=== PATIENT | male | born 1985 | race Caucasian/White ===

== ENCOUNTER 2017-08-24 11:58 | Emergency (ER) | payer SELFPAY ==
[2017-08-25 11:53] LABS: NEGATIVE OBC STREP NEG; POSITIVE OBC STREP POS
== END 2017-08-24 14:55 | disposition home or self-care (01) ==
LOC: ER 11:58
DX: J02.9 Acute pharyngitis, unspecified (principal); F17.200 Nicotine dependence, unspecified, uncomplicated
CPT/HCPCS: 87070; 87880; 99283

== ENCOUNTER 2018-08-08 13:19 | Inpatient (IN) | payer BC, SELFPAY ==
[~2018-08-08] VITALS: Ht 182.9 cm; Wt 105.3 kg
--- NOTE | 2018-08-08 14:54 | PHYS DOC ---
Past Medical History Past Medical History: No Pertinent History Past Surgical History: No Surgical History Additional Information: 1 PK A DAY Alcohol Use: Occasionally Additional Information: 2-3XS A WEEK Drug Use: None Adult General Chief Complaint Chief Complaint: HYPERTENSION HPI HPI Patient is a 32 year old male who presents to ER after going to a clinical trial for smoking his blood pressure was checked and it was high so was sent to urgent care and then ER. Associated symptoms include he has had a headache off and on the last year. Has headache today. Has had tingling down his L arm x 3 weeks. He is also had blurry vision off and on for year. States he does not go to doctor but is willing to get a primary care doctor. He also rates his pain as 4/10 and the character as throbbing. Review of Systems Review of Systems Constitutional: Denies fever or chills [] Eyes: Reports change in visual acuity but denies redness, or eye pain [] HENT: Denies nasal congestion or sore throat [] Respiratory: Denies cough or shortness of breath [] Cardiovascular: Denies CP or Syncope GI: Denies abdominal pain, nausea, vomiting, bloody stools or diarrhea [] : Denies dysuria or hematuria [] Musculoskeletal: Denies back pain or joint pain but has a tingling down left arm. Integument: Denies rash or skin lesions [] Neurologic: Reports headache but denies focal weakness or sensory changes [] Endocrine: Denies polyuria or polydipsia [] Complete systems were reviewed and found to be within normal limits, except as documented in this note. Current Medications Current Medications Current Medications Medications (Trade) Dose Ordered Sig/Jose Start Time Stop Time Status Last Admin Dose Admin Aspirin (Children'S Aspirin) 324 mg 1X ONCE 08/08/18 15:00 08/08/18 15:01 DC 08/08/18 15:16 324 MG Enalaprilat (Vasotec Inj) 2.5 mg 1X ONCE 08/08/18 17:30 08/08/18 17:31 DC Hydralazine HCl (Apresoline Inj) 10 mg 1X ONCE 08/08/18 15:00 08/08/18 15:01 DC 08/08/18 15:16 10 MG Labetalol HCl (Normodyne Iv Push) 20 mg 1X ONCE 08/08/18 16:00 08/08/18 16:01 DC 08/08/18 16:17 20 MG Allergies Allergies Allergies Coded Allergies Type Severity Reaction Last Updated Verified No Known Drug Allergies 08/24/17 No Physical Exam Physical Exam Constitutional: Well developed, well nourished, no acute distress, non-toxic appearance. [] HENT: Normocephalic, atraumatic, bilateral external ears normal, oropharynx moist, no oral exudates, nose normal. [] Eyes: PERRLA, EOMI, conjunctiva normal, no discharge. [] Neck: Normal range of motion, no tenderness, supple, no stridor. [] Cardiovascular:Heart rate regular rhythm, no murmur [] Lungs & Thorax: Bilateral breath sounds clear to auscultation [] Abdomen: Soft, no tenderness, no masses, no pulsatile masses. [] Skin: Warm, dry, no erythema, no rash. [] Back: No tenderness, no CVA tenderness. [] Extremities: No tenderness, no cyanosis, no clubbing, ROM intact, no edema. [] Neurologic: Alert and oriented X 3, normal motor function, normal sensory function, no focal deficits noted. [] Psychologic: Affect normal, judgement normal, mood normal. [] Current Patient Data Vital Signs Vital Signs Date Time Temp Pulse Resp B/P (MAP) Pulse Ox O2 Delivery O2 Flow Rate FiO2 08/08/18 16:17 78 201/126 08/08/18 14:05 98.2 20 97 Room Air 98.2 Lab Values Laboratory Tests Test 08/08/18 14:30 08/08/18 17:24 White Blood Count 11.1 x10^3/uL (4.0-11.0) H Red Blood Count 5.08 x10^6/uL (4.30-5.70) Hemoglobin 16.2 g/dL (13.0-17.5) Hematocrit 47.1 % (39.0-53.0) Mean Corpuscular Volume 93 fL (79-100) Mean Corpuscular Hemoglobin 32 pg (25-35) Mean Corpuscular Hemoglobin Concent 34 g/dL (31-37) Red Cell Distribution Width 13.1 % (11.5-14.5) Platelet Count 205 x10^3/uL (140-400) Neutrophils (%) (Auto) 65 % (31-73) Lymphocytes (%) (Auto) 30 % (24-48) Monocytes (%) (Auto) 4 % (0-9) Eosinophils (%) (Auto) 1 % (0-3) Basophils (%) (Auto) 0 % (0-3) Neutrophils # (Auto) 7.2 x10^3uL (1.8-7.7) Lymphocytes # (Auto) 3.3 x10^3/uL (1.0-4.8) Monocytes # (Auto) 0.4 x10^3/uL (0.0-1.1) Eosinophils # (Auto) 0.2 x10^3/uL (0.0-0.7) Basophils # (Auto) 0.0 x10^3/uL (0.0-0.2) Sodium Level 140 mmol/L (136-145) Potassium Level 4.0 mmol/L (3.5-5.1) Chloride Level 103 mmol/L (98-107) Carbon Dioxide Level 27 mmol/L (21-32) Anion Gap 10 (6-14) Blood Urea Nitrogen 12 mg/dL (8-26) Creatinine 0.8 mg/dL (0.7-1.3) Estimated GFR (Cockcroft-Gault) 113.5 BUN/Creatinine Ratio 15 (6-20) Glucose Level 98 mg/dL (70-99) Calcium Level 9.1 mg/dL (8.5-10.1) Total Bilirubin 1.0 mg/dL (0.2-1.0) Aspartate Amino Transferase (AST) 37 U/L (15-37) Alanine Aminotransferase (ALT) 68 U/L (16-63) H Alkaline Phosphatase 53 U/L (46-116) Troponin I Quantitative 0.030 ng/mL (0.000-0.055) Total Protein 7.4 g/dL (6.4-8.2) Albumin 4.1 g/dL (3.4-5.0) Albumin/Globulin Ratio 1.2 (1.0-1.7) Creatine Kinase 206 U/L (39-308) Laboratory Tests 08/08/18 14:30 Laboratory Tests 08/08/18 14:30 EKG EKG EKG interpreted by Dr. Tucker, NO STEMI, Sinus Rhythm with rate of 77.[] Radiology/Procedures Radiology/Procedures []PATIENT: WHITE,JOHNNY EACCOUNT: [id number]#: [id number] : 1985 LOCATION: ER AGE: 32 SEX: M EXAM STATUS: REG ER ORD. PHYSICIAN: ELICEO ALVES APRN REASON: atypical chest pain, ACUTE HTN PROCEDURE: PORTABLE CHEST 1V Single view chest dated 08/08/2018: No comparison available. Clinical Indication: Chest pain.. Findings: Single upright portable exam of the chest was performed. Heart size and mediastinal contours are within normal limits given technique. The lungs are clear without evidence of focal consolidation. Vascular interstitium is within normal limits. Impression:: Negative portable chest. Electronically signed by: Eliceo Su MD (08/08/2018 3:21 PM) PATIENT: JOHNNY NOE E ACCOUNT: [id number] : 1985 LOCATION: ER AGE: 32 SEX: M EXAM STATUS: REG ER ORD. PHYSICIAN: ELICEO ALVES APRN REASON: headache; htn PROCEDURE: CT HEAD WO CONTRAST CT HEAD INDICATION: Headache, hypertension COMPARISON: None Available. Exposure: One or more of the following individualized dose reduction techniques were utilized for this examination: 1. Automated exposure control 2. Adjustment of the mA and/or kV according to patient size 3. Use of iterative reconstruction technique TECHNIQUE: 5 mm contiguous axial images were obtained from the skull base to the vertex in both bone and soft tissue algorithm. FINDINGS: No abnormal attenuation within the brain parenchyma. No evidence of acute intracranial hemorrhage. No extra-axial fluid collections. No mass effect or midline shift. Ventricular size is appropriate. Basal cisterns are patent. No fractures identified.Barnard-white differentiation is preserved.Globes and orbits are within normal limits. Mild mucosal thickening right maxillary sinus. There is mild opacification the right mastoid air cells. IMPRESSION: 1. No acute intracranial findings. 2. Mild opacification of the right mastoid air cells, nonspecific could be secondary to fluid within the mastoid air cells or chronic otitis media. Electronically signed by: Antonio Roca MD (08/08/2018 3:17 PM) [place] [id number] Course & Med Decision Making Course & Med Decision Making Pertinent Labs and Imaging studies reviewed. (See chart for details) Discussed with patient the importance of obtaining a primary care doctor and having a physical. Will give IV hydralazine to control pressure, labs, ekg, and chest x-ray. Will also get CT of head. Imaging and labs are unremarkable with the exception of an 11.1 WBC but states he had recent ear infection. Blood pressure is down to 170's systolic. Will give 10 of labetalol to lower further. He states headache, and tingling. Went back to check on patient and blood pressure is back up to low 200's systolic. States arm tingling is coming and going intermittently. Will call hospitalist to admit. Talked to Dr. Lucero will try Vasotec to see if brings pressure down. Vasotec improved blood pressure to 143/96. Will admit to CVC. Frank Disclaimer Frank Disclaimer This electronic medical record was generated, in whole or in part, using a voice recognition dictation system. Departure Departure Impression: Primary Impression: Hypertensive urgency Disposition: ADMITTED INPATIENT Condition: GOOD Referrals: NO PCP (PCP) Patient Instructions: Hypertension Additional Instructions: Please follow up with a primary care doctor this week for physical. Return to ER as needed. ELICEO ALVES APRN August 08, 2018 14:54
[2018-08-08 14:55] LABS: BASO % 0 % (0-3); EOS # 0.2 x10^3/uL (0.0-0.7); EOS % 1 % (0-3); HEMATOCRIT 47.1 % (39.0-53.0); HEMOGLOBIN 16.2 g/dL (13.0-17.5); LYMPH # 3.3 x10^3/uL (1.0-4.8); LYMPH % 30 % (24-48); MEAN CORPUSCULAR HEMOGLOBIN 32 pg (25-35); MEAN CORPUSCULAR HGB CONC 34 g/dL (31-37); MEAN CORPUSCULAR VOLUME 93 fL (79-100); MONO # 0.4 x10^3/uL (0.0-1.1); MONO % 4 % (0-9); NEUT # 7.2 x10^3uL (1.8-7.7); NEUT % 65 % (31-73); PLATELET COUNT 205 x10^3/uL (140-400); RED BLOOD COUNT 5.08 x10^6/uL (4.30-5.70); RED CELL DISTRIBUTION WIDTH 13.1 % (11.5-14.5); WHITE BLOOD COUNT 11.1 x10^3/uL (4.0-11.0)
[2018-08-08] MEDS ORDERED: ASPIRIN CHEWABLE 81 MG TABLET. PO ONE (15:00)
[2018-08-08] MEDS ORDERED: hydrALAZINE 20 MG/ML VIAL. IVP ONE (15:00)
[2018-08-08 15:06] LABS: CALCIUM 9.1 mg/dL (8.5-10.1); CREATININE 0.8 mg/dL (0.7-1.3); GFR 113.5
[2018-08-08 15:11] LABS: ALBUMIN 4.1 g/dL (3.4-5.0); ALBUMIN/GLOBULIN RATIO 1.2 (1.0-1.7); TOTAL PROTEIN 7.4 g/dL (6.4-8.2)
--- NOTE | 2018-08-08 15:20 | RAD ---
CT HEAD INDICATION: Headache, hypertension COMPARISON: None Available. Exposure: One or more of the following individualized dose reduction techniques were utilized for this examination: 1. Automated exposure control 2. Adjustment of the mA and/or kV according to patient size 3. Use of iterative reconstruction technique TECHNIQUE: 5 mm contiguous axial images were obtained from the skull base to the vertex in both bone and soft tissue algorithm. FINDINGS: No abnormal attenuation within the brain parenchyma. No evidence of acute intracranial hemorrhage. No extra-axial fluid collections. No mass effect or midline shift. Ventricular size is appropriate. Basal cisterns are patent. No fractures identified.Barnard-white differentiation is preserved.Globes and orbits are within normal limits. Mild mucosal thickening right maxillary sinus. There is mild opacification the right mastoid air cells. IMPRESSION: 1. No acute intracranial findings. 2. Mild opacification of the right mastoid air cells, nonspecific could be secondary to fluid within the mastoid air cells or chronic otitis media. Electronically signed by: Antonio Roca MD (08/08/2018 3:17 PM) [place] [id number]
--- NOTE | 2018-08-08 15:24 | RAD ---
Single view chest dated 08/08/2018: No comparison available. Clinical Indication: Chest pain.. Findings: Single upright portable exam of the chest was performed. Heart size and mediastinal contours are within normal limits given technique. The lungs are clear without evidence of focal consolidation. Vascular interstitium is within normal limits. Impression:: Negative portable chest. Electronically signed by: Eliceo Su MD (08/08/2018 3:21 PM) [id number]
--- NOTE | 2018-08-08 15:29 | EKG ---
[facility] [address] [place] [address] Test Date: 2018-08-08 Test Time: 14:31:21 Pat Name: JOHNNY NOE Department: Room: Gender: M Tobacco Baler: [id number] : 1985 Requested By: DICK ALVES Order Number: [id number] Reading MD: Jamaal Stockton Measurements Intervals [place] Rate: 77 P: -20 OR: 158 QRS: 23 QRSD: 86 T: 27 QT: 374 QTc: 425 Interpretive Statements SINUS RHYTHM Electronically Signed On 09-02-2018 11:41:01 CDT by Jamaal Stockton
[2018-08-08] MEDS ORDERED: LISI10TA2 PO ×2 (15:57→15:58)
[2018-08-08] MEDS ORDERED: LABETALOL 20 MG/4 ML DISP.SYRIN. IVP ONE (16:00)
[2018-08-08] MEDS ORDERED: ENALAPRILAT 2.5 MG/2 ML VIAL. IVP ONE (17:30)
[2018-08-08] MEDS ORDERED: ONDANSETRON PF 4 MG/2 ML VIAL. IV PRN (18:00)
--- NOTE | 2018-08-08 19:20 | PDOC1 ---
History and Physical Date of Admission Date of Admission DATE: 08/08/18 TIME: 19:19 Identification/Chief Complaint Chief Complaint Headache, elevated BP Source Source: Patient History of Present Illness History of Present Illness Mr Garcia is a 32 year old male w/ PMHx 1.5ppd smoker, chronic right otitis media, elevated blood pressure who presents to ER after going to a clinical trial for nicotine vapor smoking his blood pressure was checked and it was high so was sent to urgent care and then ER. Associated symptoms include he has had a headache off and on the last year. Has headache today. Has had tingling down his L arm x 3 weeks. He is also had blurry vision off and on for year. States he does not go to doctor. His headache has been throbbing, worse on the right side. CT head shows some mastoid sinus opacification on right, otherwise negative. Labs WNL. SBP was 211/129, then 215/115 after labetalol dosing. Given vasotec with a little more improvement. Admitted for further care. Past Medical History Cardiovascular: No pertinent hx Pulmonary: No pertinent hx GI: No pertinent hx Heme/Onc: No pertinent hx Hepatobiliary: No pertinent hx Psych: No pertinent hx Rheumatologic: No pertinent hx Infectious disease: No pertinent hx ENT: No pertinent hx Renal/: No pertinent hx Endocrine: No pertinent hx Dermatology: No pertinent hx Past Surgical History Past Surgical History: No pertinent history Family History Family History: Family History Unknown Social History Smoke: 2 packs per day ALCOHOL: rare Drugs: None Current Problem List Problem List Problems Medical Problems: (1) Hypertension Status: Acute (2) Hypertensive urgency Status: Acute (3) Uncontrolled hypertension Status: Acute Current Medications Current Medications Current Medications Hydralazine HCl (Apresoline Inj) 10 mg 1X ONCE IVP Last administered on 08/08/18at 15:16; Start 08/08/18 at 15:00; Stop 08/08/18 at 15:01; Status DC Aspirin (Children'S Aspirin) 324 mg 1X ONCE PO Last administered on 08/08/18at 15:16; Start 08/08/18 at 15:00; Stop 08/08/18 at 15:01; Status DC Labetalol HCl (Normodyne Iv Push) 20 mg 1X ONCE IVP Last administered on 08/08/18at 16:17; Start 08/08/18 at 16:00; Stop 08/08/18 at 16:01; Status DC Enalaprilat (Vasotec Inj) 2.5 mg 1X ONCE IVP Last administered on 08/08/18at 17:45; Start 08/08/18 at 17:30; Stop 08/08/18 at 17:31; Status DC Ondansetron HCl (Zofran) 4 mg PRN Q8HRS PRN IV NAUSEA/VOMITING; Start 08/08/18 at 18:00; Stop 08/09/18 at 17:59 Active Scripts Active Allergies Allergies: Coded Allergies: No Known Drug Allergies (Unverified , 08/24/17) ROS General: YES: Fatigue, Malaise; No: Chills, Night Sweats, Appetite, Other PSYCHOLOGICAL ROS: No: Anxiety, Behavioral Disorder, Concentration difficultie, Decreased libido, Depression, Disorientation, Hallucinations, Hostility, Irritablity, Memory difficulties, Mood Swings, Obsessive thoughts, Physical abuse, Sexual abuse, Sleep disturbances, Suicidal ideation, Other Eyes: Yes Blurry vision; No Decreased vision, No Double vision, No Dry eyes, No Excessive tearing, No Eye Pain, No Itchy Eyes, No Loss of vision, No Photophobia, No Scotomata, No Uses contacts, No Uses glasses, No Other HEENT: YES: Heacaches, Sinus pain; No: Visual Changes, Hearing change, Nasal congestion, Nasal discharge, Oral lesions, Sore Throat, Epistaxis, Sneezing, Snoring, Tinnitus, Vertigo, Vocal changes, Other ALLERGY AND IMMUNOLOGY: No: Hives, Insect Bite Sensitivity, Itchy/Watery Eyes, Nasal Congestion, Post Nasal Drip, Seasonal Allergies, Other Hematological and Lymphatic: No: Bleeding Problems, Blood Clots, Blood Transfusions, Brusing, Night Sweats, Pallor, Swollen Lymph Nodes, Other ENDOCRINE: No: Breast Changes, Galactorrhea, Hair Pattern Changes, Hot Flashes, Malaise/lethargy, Mood Swings, Palpitations, Polydipsia/polyuria, Skin Changes, Temperature Intolerance, Unexpected Weight Changes, Other Breast: No New/Changing Breast Lumps, No Nipple changes, No Nipple discharge, No Other Respiratory: No: Cough, Hemoptysis, Orthopnea, Pleuritic Pain, Shortness of breath, SOB with excertion, Sputum Changes, Stridor, Tachypnea, Wheezing, Other Cardiovascular: No Chest Pain, No Palpitations, No Orthopnea, No Paroxysmal Noc. Dyspnea, No Edema, No Lt Headedness, No Other Gastrointestinal: No Nausea, No Vomiting, No Abdominal Pain, No Diarrhea, No Constipation, No Melena, No Hematochezia, No Other Genitourinary: No Dysuria, No Frequency, No Incontinence, No Hematuria, No Retention, No Discharge, No Urgency, No Pain, No Flank Pain, No Other, No , No , No , No , No , No , No Musculoskeletal: No Gait Disturbance, No Joint Pain, No Joint Stiffness, No Joint Swelling, No Muscle Pain, No Muscular Weakness, No Pain In:, No Swelling In:, No Other Neurological: No Behavorial Changes, No Bowel/Bladder ControlChng, No Confusion, No Dizziness, No Gait Disturbance, No Headaches, No Impaired Coord/balance, No Memory Loss, No Numbness/Tingling, No Seizures, No Speech Problems, No Tremors, No Visual Changes, No Weakness, No Other Skin: No Dry Skin, No Eczema, No Hair Changes, No Lumps, No Mole Changes, No Mottling, No Nail Changes, No Pruritus, No Rash, No Skin Lesion Changes, No Other, No Acne Physical Exam General: Alert, Oriented X3, Cooperative, No acute distress HEENT: Atraumatic, PERRLA, EOMI, Mucous membr. moist/pink Lungs: Clear to auscultation, Normal air movement Heart: S1S2, RRR, no gallops, no murmurs Abdomen: Normal bowel sounds, Soft, No tenderness, No hepatosplenomegaly, No masses Rectal Exam: not examined Extremities: No clubbing, No cyanosis, No edema, Normal pulses, No tenderness/swelling Skin: No rashes, No breakdown, No significant lesion Neuro: Normal gait, Normal speech, Strength at 5/5 X4 ext, Normal tone, Sensation intact, Cranial nerves 3-12 NL, Reflexes 2+ Psych/Mental Status: Mental status NL, Mood NL Vitals Vitals Vital Signs Date Time Temp Pulse Resp B/P (MAP) Pulse Ox O2 Delivery O2 Flow Rate FiO2 08/08/18 18:42 90 25 96 08/08/18 17:45 252/115 08/08/18 14:05 98.2 Room Air 98.2 Labs Labs Laboratory Tests Test 08/08/18 14:30 08/08/18 17:24 White Blood Count 11.1 x10^3/uL (4.0-11.0) Red Blood Count 5.08 x10^6/uL (4.30-5.70) Hemoglobin 16.2 g/dL (13.0-17.5) Hematocrit 47.1 % (39.0-53.0) Mean Corpuscular Volume 93 fL (79-100) Mean Corpuscular Hemoglobin 32 pg (25-35) Mean Corpuscular Hemoglobin Concent 34 g/dL (31-37) Red Cell Distribution Width 13.1 % (11.5-14.5) Platelet Count 205 x10^3/uL (140-400) Neutrophils (%) (Auto) 65 % (31-73) Lymphocytes (%) (Auto) 30 % (24-48) Monocytes (%) (Auto) 4 % (0-9) Eosinophils (%) (Auto) 1 % (0-3) Basophils (%) (Auto) 0 % (0-3) Neutrophils # (Auto) 7.2 x10^3uL (1.8-7.7) Lymphocytes # (Auto) 3.3 x10^3/uL (1.0-4.8) Monocytes # (Auto) 0.4 x10^3/uL (0.0-1.1) Eosinophils # (Auto) 0.2 x10^3/uL (0.0-0.7) Basophils # (Auto) 0.0 x10^3/uL (0.0-0.2) Sodium Level 140 mmol/L (136-145) Potassium Level 4.0 mmol/L (3.5-5.1) Chloride Level 103 mmol/L (98-107) Carbon Dioxide Level 27 mmol/L (21-32) Anion Gap 10 (6-14) Blood Urea Nitrogen 12 mg/dL (8-26) Creatinine 0.8 mg/dL (0.7-1.3) Estimated GFR (Cockcroft-Gault) 113.5 BUN/Creatinine Ratio 15 (6-20) Glucose Level 98 mg/dL (70-99) Calcium Level 9.1 mg/dL (8.5-10.1) Total Bilirubin 1.0 mg/dL (0.2-1.0) Aspartate Amino Transf (AST/SGOT) 37 U/L (15-37) Alanine Aminotransferase (ALT/SGPT) 68 U/L (16-63) Alkaline Phosphatase 53 U/L (46-116) Troponin I Quantitative 0.030 ng/mL (0.000-0.055) Total Protein 7.4 g/dL (6.4-8.2) Albumin 4.1 g/dL (3.4-5.0) Albumin/Globulin Ratio 1.2 (1.0-1.7) Creatine Kinase 206 U/L (39-308) Laboratory Tests Test 08/08/18 14:30 08/08/18 17:24 White Blood Count 11.1 x10^3/uL (4.0-11.0) Red Blood Count 5.08 x10^6/uL (4.30-5.70) Hemoglobin 16.2 g/dL (13.0-17.5) Hematocrit 47.1 % (39.0-53.0) Mean Corpuscular Volume 93 fL (79-100) Mean Corpuscular Hemoglobin 32 pg (25-35) Mean Corpuscular Hemoglobin Concent 34 g/dL (31-37) Red Cell Distribution Width 13.1 % (11.5-14.5) Platelet Count 205 x10^3/uL (140-400) Neutrophils (%) (Auto) 65 % (31-73) Lymphocytes (%) (Auto) 30 % (24-48) Monocytes (%) (Auto) 4 % (0-9) Eosinophils (%) (Auto) 1 % (0-3) Basophils (%) (Auto) 0 % (0-3) Neutrophils # (Auto) 7.2 x10^3uL (1.8-7.7) Lymphocytes # (Auto) 3.3 x10^3/uL (1.0-4.8) Monocytes # (Auto) 0.4 x10^3/uL (0.0-1.1) Eosinophils # (Auto) 0.2 x10^3/uL (0.0-0.7) Basophils # (Auto) 0.0 x10^3/uL (0.0-0.2) Sodium Level 140 mmol/L (136-145) Potassium Level 4.0 mmol/L (3.5-5.1) Chloride Level 103 mmol/L (98-107) Carbon Dioxide Level 27 mmol/L (21-32) Anion Gap 10 (6-14) Blood Urea Nitrogen 12 mg/dL (8-26) Creatinine 0.8 mg/dL (0.7-1.3) Estimated GFR (Cockcroft-Gault) 113.5 BUN/Creatinine Ratio 15 (6-20) Glucose Level 98 mg/dL (70-99) Calcium Level 9.1 mg/dL (8.5-10.1) Total Bilirubin 1.0 mg/dL (0.2-1.0) Aspartate Amino Transf (AST/SGOT) 37 U/L (15-37) Alanine Aminotransferase (ALT/SGPT) 68 U/L (16-63) Alkaline Phosphatase 53 U/L (46-116) Troponin I Quantitative 0.030 ng/mL (0.000-0.055) Total Protein 7.4 g/dL (6.4-8.2) Albumin 4.1 g/dL (3.4-5.0) Albumin/Globulin Ratio 1.2 (1.0-1.7) Creatine Kinase 206 U/L (39-308) Images Images CT head - 1. No acute intracranial findings. 2. Mild opacification of the right mastoid air cells, nonspecific could be secondary to fluid within the mastoid air cells or chronic otitis media. CXR - Negative portable chest. VTE Prophylaxis Ordered VTE Prophylaxis Devices: Yes VTE Pharmacological Prophylaxi: No Assessment/Plan Assessment/Plan A/P: Accelerated HTN - dangerously high DBP, admitted for better control of this hypertensive emergency. Will start low dose amlodipine and chlorthalidone, IV vasotec to get his DBP < 110. He may need 2/2 HTN w/u, will check renal dopplers, renin/safia as he notes having elevated BP as of 3 years ago. Smoking cessation is absolutely necessary for him Obesity - has been losing weight intentionally outpatient over the past 2 years. Smoker - 1.5ppd, offered nicotine patch. 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 and somewhat chronic otitis in his right ear, currently not symptomatic Headache - likely 2/2 his elevated BP, tylenol prn for this, treat BP FEN - General diet PPX - ambulatory FULL CODE Inpatient for HTN emergency ZHEN MEYER MD August 08, 2018 19:20
[2018-08-08 19:43] VITALS: BP 152/100
[2018-08-08] MEDS ORDERED: amLODIPine BESYLATE 5 MG TABLET PO ONE (20:30)
[2018-08-08] MEDS ORDERED: ENALAPRILAT 2.5 MG/2 ML VIAL. IVP PRN (22:00)
[2018-08-08] MEDS ORDERED: LABETALOL 20 MG/4 ML DISP.SYRIN. IVP PRN (22:00)
[2018-08-08 22:16] VITALS: BP 130/89
[2018-08-09 02:14] VITALS: BP 113/81
[2018-08-09 07:00] VITALS: BP 159/93
--- NOTE | 2018-08-09 08:03 | PDOC ---
PROGRESS NOTES Chief Complaint Chief Complaint A/P: Accelerated HTN - dangerously high DBP, admitted for better control of this hypertensive emergency. Will start low dose amlodipine and chlorthalidone, IV vasotec to get his DBP < 110. He may need 2/2 HTN w/u, will check renal dopplers, renin/safia as he notes having elevated BP as of 3 years ago. Smoking cessation is absolutely necessary for him Obesity - has been losing weight intentionally outpatient over the past 2 years. Smoker - 1.5ppd, offered nicotine patch. 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 Associated symptoms include he has had a headache off and on the last year. Has headache today. Has had tingling down his L arm x 3 weeks. He is also had blurry vision off and on for year. States he does not go to doctor. His headache has been throbbing, worse on the right side. CT head shows some mastoid sinus opacification on right, otherwise negative. Labs WNL. SBP was 211/129, then 215/115 after labetalol dosing. Given vasotec with a little more improvement. Admitted for further care. BP normalized with addition of oral amlodipine and chlorthalidone, underwent renal artery duplex negative for stenosis. Renin/aldosterone pending. Echo pending. He feels much better, ready to go home. Echo - The left ventricle is normal size. The left ventricular systolic function is normal and the ejection fraction is within normal range. The Ejection Fraction is 55-60%. There is borderline concentric left ventricular hypertrophy. There is no significant aortic valvular stenosis. Doppler and Color Flow revealed no significant aortic regurgitation. Doppler and Color-flow revealed trace mitral regurgitation. Doppler and Color Flow revealed no tricuspid valve regurgitation noted. Vitals Vitals Vital Signs Date Time Temp Pulse Resp B/P (MAP) Pulse Ox O2 Delivery O2 Flow Rate FiO2 08/09/18 07:00 97.8 92 20 159/93 (115) 98 Room Air 97.8 Physical Exam General: Alert, Oriented X3, Cooperative, No acute distress Abdomen: Normal bowel sounds, Soft, No tenderness, No hepatosplenomegaly, No masses Extremities: No clubbing, No cyanosis, No edema, Normal pulses, No tenderness/swelling Skin: No rashes, No breakdown, No significant lesion Labs LABS Laboratory Tests Test 08/08/18 14:30 08/08/18 17:24 White Blood Count 11.1 x10^3/uL (4.0-11.0) Red Blood Count 5.08 x10^6/uL (4.30-5.70) Hemoglobin 16.2 g/dL (13.0-17.5) Hematocrit 47.1 % (39.0-53.0) Mean Corpuscular Volume 93 fL (79-100) Mean Corpuscular Hemoglobin 32 pg (25-35) Mean Corpuscular Hemoglobin Concent 34 g/dL (31-37) Red Cell Distribution Width 13.1 % (11.5-14.5) Platelet Count 205 x10^3/uL (140-400) Neutrophils (%) (Auto) 65 % (31-73) Lymphocytes (%) (Auto) 30 % (24-48) Monocytes (%) (Auto) 4 % (0-9) Eosinophils (%) (Auto) 1 % (0-3) Basophils (%) (Auto) 0 % (0-3) Neutrophils # (Auto) 7.2 x10^3uL (1.8-7.7) Lymphocytes # (Auto) 3.3 x10^3/uL (1.0-4.8) Monocytes # (Auto) 0.4 x10^3/uL (0.0-1.1) Eosinophils # (Auto) 0.2 x10^3/uL (0.0-0.7) Basophils # (Auto) 0.0 x10^3/uL (0.0-0.2) Sodium Level 140 mmol/L (136-145) Potassium Level 4.0 mmol/L (3.5-5.1) Chloride Level 103 mmol/L (98-107) Carbon Dioxide Level 27 mmol/L (21-32) Anion Gap 10 (6-14) Blood Urea Nitrogen 12 mg/dL (8-26) Creatinine 0.8 mg/dL (0.7-1.3) Estimated GFR (Cockcroft-Gault) 113.5 BUN/Creatinine Ratio 15 (6-20) Glucose Level 98 mg/dL (70-99) Calcium Level 9.1 mg/dL (8.5-10.1) Total Bilirubin 1.0 mg/dL (0.2-1.0) Aspartate Amino Transf (AST/SGOT) 37 U/L (15-37) Alanine Aminotransferase (ALT/SGPT) 68 U/L (16-63) Alkaline Phosphatase 53 U/L (46-116) Troponin I Quantitative 0.030 ng/mL (0.000-0.055) Total Protein 7.4 g/dL (6.4-8.2) Albumin 4.1 g/dL (3.4-5.0) Albumin/Globulin Ratio 1.2 (1.0-1.7) Creatine Kinase 206 U/L (39-308) Assessment and Plan Assessmemt and Plan Problems Medical Problems: (1) Hypertension Status: Acute (2) Hypertensive urgency Status: Acute (3) Uncontrolled hypertension Status: Acute Comment Review of Relevant I have reviewed the following items trent (where applicable) has been applied. Labs Laboratory Tests Test 08/08/18 14:30 08/08/18 17:24 White Blood Count 11.1 x10^3/uL (4.0-11.0) Red Blood Count 5.08 x10^6/uL (4.30-5.70) Hemoglobin 16.2 g/dL (13.0-17.5) Hematocrit 47.1 % (39.0-53.0) Mean Corpuscular Volume 93 fL (79-100) Mean Corpuscular Hemoglobin 32 pg (25-35) Mean Corpuscular Hemoglobin Concent 34 g/dL (31-37) Red Cell Distribution Width 13.1 % (11.5-14.5) Platelet Count 205 x10^3/uL (140-400) Neutrophils (%) (Auto) 65 % (31-73) Lymphocytes (%) (Auto) 30 % (24-48) Monocytes (%) (Auto) 4 % (0-9) Eosinophils (%) (Auto) 1 % (0-3) Basophils (%) (Auto) 0 % (0-3) Neutrophils # (Auto) 7.2 x10^3uL (1.8-7.7) Lymphocytes # (Auto) 3.3 x10^3/uL (1.0-4.8) Monocytes # (Auto) 0.4 x10^3/uL (0.0-1.1) Eosinophils # (Auto) 0.2 x10^3/uL (0.0-0.7) Basophils # (Auto) 0.0 x10^3/uL (0.0-0.2) Sodium Level 140 mmol/L (136-145) Potassium Level 4.0 mmol/L (3.5-5.1) Chloride Level 103 mmol/L (98-107) Carbon Dioxide Level 27 mmol/L (21-32) Anion Gap 10 (6-14) Blood Urea Nitrogen 12 mg/dL (8-26) Creatinine 0.8 mg/dL (0.7-1.3) Estimated GFR (Cockcroft-Gault) 113.5 BUN/Creatinine Ratio 15 (6-20) Glucose Level 98 mg/dL (70-99) Calcium Level 9.1 mg/dL (8.5-10.1) Total Bilirubin 1.0 mg/dL (0.2-1.0) Aspartate Amino Transf (AST/SGOT) 37 U/L (15-37) Alanine Aminotransferase (ALT/SGPT) 68 U/L (16-63) Alkaline Phosphatase 53 U/L (46-116) Troponin I Quantitative 0.030 ng/mL (0.000-0.055) Total Protein 7.4 g/dL (6.4-8.2) Albumin 4.1 g/dL (3.4-5.0) Albumin/Globulin Ratio 1.2 (1.0-1.7) Creatine Kinase 206 U/L (39-308) Laboratory Tests Test 08/08/18 14:30 08/08/18 17:24 White Blood Count 11.1 x10^3/uL (4.0-11.0) Red Blood Count 5.08 x10^6/uL (4.30-5.70) Hemoglobin 16.2 g/dL (13.0-17.5) Hematocrit 47.1 % (39.0-53.0) Mean Corpuscular Volume 93 fL (79-100) Mean Corpuscular Hemoglobin 32 pg (25-35) Mean Corpuscular Hemoglobin Concent 34 g/dL (31-37) Red Cell Distribution Width 13.1 % (11.5-14.5) Platelet Count 205 x10^3/uL (140-400) Neutrophils (%) (Auto) 65 % (31-73) Lymphocytes (%) (Auto) 30 % (24-48) Monocytes (%) (Auto) 4 % (0-9) Eosinophils (%) (Auto) 1 % (0-3) Basophils (%) (Auto) 0 % (0-3) Neutrophils # (Auto) 7.2 x10^3uL (1.8-7.7) Lymphocytes # (Auto) 3.3 x10^3/uL (1.0-4.8) Monocytes # (Auto) 0.4 x10^3/uL (0.0-1.1) Eosinophils # (Auto) 0.2 x10^3/uL (0.0-0.7) Basophils # (Auto) 0.0 x10^3/uL (0.0-0.2) Sodium Level 140 mmol/L (136-145) Potassium Level 4.0 mmol/L (3.5-5.1) Chloride Level 103 mmol/L (98-107) Carbon Dioxide Level 27 mmol/L (21-32) Anion Gap 10 (6-14) Blood Urea Nitrogen 12 mg/dL (8-26) Creatinine 0.8 mg/dL (0.7-1.3) Estimated GFR (Cockcroft-Gault) 113.5 BUN/Creatinine Ratio 15 (6-20) Glucose Level 98 mg/dL (70-99) Calcium Level 9.1 mg/dL (8.5-10.1) Total Bilirubin 1.0 mg/dL (0.2-1.0) Aspartate Amino Transf (AST/SGOT) 37 U/L (15-37) Alanine Aminotransferase (ALT/SGPT) 68 U/L (16-63) Alkaline Phosphatase 53 U/L (46-116) Troponin I Quantitative 0.030 ng/mL (0.000-0.055) Total Protein 7.4 g/dL (6.4-8.2) Albumin 4.1 g/dL (3.4-5.0) Albumin/Globulin Ratio 1.2 (1.0-1.7) Creatine Kinase 206 U/L (39-308) Medications Current Medications Hydralazine HCl (Apresoline Inj) 10 mg 1X ONCE IVP Last administered on 08/08/18at 15:16; Start 08/08/18 at 15:00; Stop 08/08/18 at 15:01; Status DC Aspirin (Children'S Aspirin) 324 mg 1X ONCE PO Last administered on 08/08/18at 15:16; Start 08/08/18 at 15:00; Stop 08/08/18 at 15:01; Status DC Labetalol HCl (Normodyne Iv Push) 20 mg 1X ONCE IVP Last administered on 08/08/18at 16:17; Start 08/08/18 at 16:00; Stop 08/08/18 at 16:01; Status DC Enalaprilat (Vasotec Inj) 2.5 mg 1X ONCE IVP Last administered on 08/08/18at 17:45; Start 08/08/18 at 17:30; Stop 08/08/18 at 17:31; Status DC Ondansetron HCl (Zofran) 4 mg PRN Q8HRS PRN IV NAUSEA/VOMITING; Start 08/08/18 at 18:00; Stop 08/09/18 at 17:59 Amlodipine Besylate (Norvasc) 5 mg 1X ONCE PO Last administered on 08/08/18at 20:53; Start 08/08/18 at 20:30; Stop 08/08/18 at 20:31; Status DC Enalaprilat (Vasotec Inj) 2.5 mg PRN Q6HRS PRN IVP HYPERTENSION, SEE COMMENTS; Start 08/08/18 at 22:00 Labetalol HCl (Normodyne Iv Push) 10 mg PRN Q2HR PRN IVP HYPERTENSION, SEE COMMENTS; Start 08/08/18 at 22:00 Chlorthalidone (Thalitone) 25 mg DAILY PO ; Start 08/09/18 at 09:00 Amlodipine Besylate (Norvasc) 5 mg DAILY PO ; Start 08/09/18 at 09:00 Active Scripts Active Vitals/I & O Vital Sign - Last 24 Hours 08/08/18 08/08/18 08/08/18 08/08/18 14:05 14:25 14:40 14:55 Temp 98.2 98.2 Pulse 84 84 80 68 Resp B/P (MAP) 151/118 (129) Pulse Ox 97 98 97 O2 Delivery Room Air 08/08/18 08/08/18 08/08/18 08/08/18 15:12 15:16 15:30 15:42 Pulse 75 85 80 80 Resp B/P (MAP) 196/125 Pulse Ox 99 98 08/08/18 08/08/18 08/08/18 08/08/18 16:06 16:17 16:20 16:27 Pulse 72 78 78 72 Resp B/P (MAP) 201/126 Pulse Ox 99 98 98 08/08/18 08/08/18 08/08/18 08/08/18 16:57 17:12 17:27 17:40 Pulse 80 78 82 84 Resp 20 08/08/18 08/08/18 08/08/18 08/08/18 17:42 17:45 17:53 18:02 Pulse 80 80 86 84 Resp B/P (MAP) 252/115 Pulse Ox 98 97 08/08/18 08/08/18 08/08/18 08/08/18 18:12 18:32 18:42 19:43 Temp 98.1 98.1 Pulse 82 88 90 107 Resp 18 B/P (MAP) 152/100 (117) Pulse Ox 97 97 96 97 O2 Delivery Room Air 08/08/18 08/08/18 08/08/18 08/09/18 20:25 20:53 22:16 02:14 Temp 98.2 98.7 98.2 98.7 Pulse 107 114 77 Resp 20 20 B/P (MAP) 152/100 130/89 (103) 113/81 (92) Pulse Ox 98 96 O2 Delivery Room Air Room Air Room Air 08/09/18 07:00 Temp 97.8 97.8 Pulse 92 Resp 20 B/P (MAP) 159/93 (115) Pulse Ox 98 O2 Delivery Room Air Intake and Output 08/08/18 08/08/18 08/09/18 14:59 22:59 06:59 Intake Total 200 ml 0 ml Balance 200 ml 0 ml ZHEN MEYER MD August 09, 2018 08:03
--- NOTE | 2018-08-09 08:18 | RAD ---
US RENAL DUPLEX History: New onset hypertension Comparison: None. Findings: Multiple grayscale, color, duplex spectral analysis waveform images of the kidneys and renal vasculature are submitted. There is no significant velocity elevation of the renal arteries, maximal right renal artery velocity 126 cm/s distally and left 127 cm/s distally. Maximal right renal resistive index 0.6, left 0.6. Abdominal aortic peak systolic velocity 114 cm/s. Maximal right RA/AO ratio 1.1, left 1.1. Right kidney measured up to 14.3 cm in length, left 14.7 cm. There is no hydronephrosis of either kidney. Renal veins are patent. Impression: 1. There is no sonographic evidence of renal artery stenosis. Electronically signed by: Christian Kirby MD (08/09/2018 8:15 AM) [id number]
[2018-08-09] MEDS ORDERED: CHLORTHALIDONE 25 MG TABLET. PO SCH (09:00)
[2018-08-09] MEDS ORDERED: amLODIPine BESYLATE 5 MG TABLET PO SCH (09:00)
[2018-08-09] MEDS ORDERED: AMLO10TA8 PO (09:55)
[2018-08-09] MEDS ORDERED: Nicotine 21MG TD (09:55)
[2018-08-09] MEDS ORDERED: CHLO25TA10 PO (09:55)
[2018-08-09] MEDS ORDERED: NICOTINE 21MG PATCH. TD SCH (10:00)
[2018-08-09 11:00] VITALS: BP 157/91
--- NOTE | 2018-08-09 11:04 | PDOC3 ---
Discharge Summary Visit Information Date of Admission: August 08, 2018 Date of Discharge: August 09, 2018 Admitting Diagnosis: Hypertensive emergency, transaminitis, Headache Final Diagnosis Problems Medical Problems: (1) Hypertension Status: Acute (2) Hypertensive urgency Status: Acute (3) Uncontrolled hypertension Status: Acute Brief Hospital Course Allergies Allergies Coded Allergies Type Severity Reaction Last Updated Verified No Known Drug Allergies 08/24/17 No Vital Signs Vital Signs Date Time Temp Pulse Resp B/P (MAP) Pulse Ox O2 Delivery O2 Flow Rate FiO2 08/09/18 08:58 80 159/93 08/09/18 07:00 97.8 20 98 Room Air 97.8 Lab Results Laboratory Tests Test 08/08/18 14:30 08/08/18 17:24 White Blood Count 11.1 x10^3/uL (4.0-11.0) Red Blood Count 5.08 x10^6/uL (4.30-5.70) Hemoglobin 16.2 g/dL (13.0-17.5) Hematocrit 47.1 % (39.0-53.0) Mean Corpuscular Volume 93 fL (79-100) Mean Corpuscular Hemoglobin 32 pg (25-35) Mean Corpuscular Hemoglobin Concent 34 g/dL (31-37) Red Cell Distribution Width 13.1 % (11.5-14.5) Platelet Count 205 x10^3/uL (140-400) Neutrophils (%) (Auto) 65 % (31-73) Lymphocytes (%) (Auto) 30 % (24-48) Monocytes (%) (Auto) 4 % (0-9) Eosinophils (%) (Auto) 1 % (0-3) Basophils (%) (Auto) 0 % (0-3) Neutrophils # (Auto) 7.2 x10^3uL (1.8-7.7) Lymphocytes # (Auto) 3.3 x10^3/uL (1.0-4.8) Monocytes # (Auto) 0.4 x10^3/uL (0.0-1.1) Eosinophils # (Auto) 0.2 x10^3/uL (0.0-0.7) Basophils # (Auto) 0.0 x10^3/uL (0.0-0.2) Sodium Level 140 mmol/L (136-145) Potassium Level 4.0 mmol/L (3.5-5.1) Chloride Level 103 mmol/L (98-107) Carbon Dioxide Level 27 mmol/L (21-32) Anion Gap 10 (6-14) Blood Urea Nitrogen 12 mg/dL (8-26) Creatinine 0.8 mg/dL (0.7-1.3) Estimated GFR (Cockcroft-Gault) 113.5 BUN/Creatinine Ratio 15 (6-20) Glucose Level 98 mg/dL (70-99) Calcium Level 9.1 mg/dL (8.5-10.1) Total Bilirubin 1.0 mg/dL (0.2-1.0) Aspartate Amino Transf (AST/SGOT) 37 U/L (15-37) Alanine Aminotransferase (ALT/SGPT) 68 U/L (16-63) Alkaline Phosphatase 53 U/L (46-116) Troponin I Quantitative 0.030 ng/mL (0.000-0.055) Total Protein 7.4 g/dL (6.4-8.2) Albumin 4.1 g/dL (3.4-5.0) Albumin/Globulin Ratio 1.2 (1.0-1.7) Creatine Kinase 206 U/L (39-308) Laboratory Tests Test 08/08/18 14:30 08/08/18 17:24 White Blood Count 11.1 x10^3/uL (4.0-11.0) Red Blood Count 5.08 x10^6/uL (4.30-5.70) Hemoglobin 16.2 g/dL (13.0-17.5) Hematocrit 47.1 % (39.0-53.0) Mean Corpuscular Volume 93 fL (79-100) Mean Corpuscular Hemoglobin 32 pg (25-35) Mean Corpuscular Hemoglobin Concent 34 g/dL (31-37) Red Cell Distribution Width 13.1 % (11.5-14.5) Platelet Count 205 x10^3/uL (140-400) Neutrophils (%) (Auto) 65 % (31-73) Lymphocytes (%) (Auto) 30 % (24-48) Monocytes (%) (Auto) 4 % (0-9) Eosinophils (%) (Auto) 1 % (0-3) Basophils (%) (Auto) 0 % (0-3) Neutrophils # (Auto) 7.2 x10^3uL (1.8-7.7) Lymphocytes # (Auto) 3.3 x10^3/uL (1.0-4.8) Monocytes # (Auto) 0.4 x10^3/uL (0.0-1.1) Eosinophils # (Auto) 0.2 x10^3/uL (0.0-0.7) Basophils # (Auto) 0.0 x10^3/uL (0.0-0.2) Sodium Level 140 mmol/L (136-145) Potassium Level 4.0 mmol/L (3.5-5.1) Chloride Level 103 mmol/L (98-107) Carbon Dioxide Level 27 mmol/L (21-32) Anion Gap 10 (6-14) Blood Urea Nitrogen 12 mg/dL (8-26) Creatinine 0.8 mg/dL (0.7-1.3) Estimated GFR (Cockcroft-Gault) 113.5 BUN/Creatinine Ratio 15 (6-20) Glucose Level 98 mg/dL (70-99) Calcium Level 9.1 mg/dL (8.5-10.1) Total Bilirubin 1.0 mg/dL (0.2-1.0) Aspartate Amino Transf (AST/SGOT) 37 U/L (15-37) Alanine Aminotransferase (ALT/SGPT) 68 U/L (16-63) Alkaline Phosphatase 53 U/L (46-116) Troponin I Quantitative 0.030 ng/mL (0.000-0.055) Total Protein 7.4 g/dL (6.4-8.2) Albumin 4.1 g/dL (3.4-5.0) Albumin/Globulin Ratio 1.2 (1.0-1.7) Creatine Kinase 206 U/L (39-308) Brief Hospital Course Mr Garcia is a 32 year old male w/ PMHx 1.5ppd smoker, chronic right otitis m edia, elevated blood pressure who presents to ER after going to a clinical trial for nicotine vapor smoking his blood pressure was checked and it was high so was sent to urgent care and then ER. Associated symptoms include he has had a headache off and on the last year. Has headache today. Has had tingling down his L arm x 3 weeks. He is also had blurry vision off and on for year. States he does not go to doctor. His headache has been throbbing, worse on the right side. CT head shows some mastoid sinus opac ification on right, otherwise negative. Labs WNL. SBP was 211/129, then 215/115 after labetalol dosing. Given vasotec with a little more improvement. Admitted for further care. BP normalized with addition of oral amlodipine and chlorthalidone, underwent r enal artery duplex negative for stenosis. Renin/aldosterone pending. Echo pending. He feels much better, ready to go home. He will establish PCP in the next week, confirmed in house and will have renal panel in 1 week to ascertain normal electrolytes after starting chlorthalidone. A/P: Accelerated HTN - dangerously high DBP, admitted for better control of this hypertensive emergency. Will start low dose amlodipine and chlorthalidone, IV vasotec to get his DBP < 110. Negative 2/2 HTN w/u with normal renal dopplers, renin/safia pending. He notes having elevated BP as of 3 years ago. Smoking cessation is absolutely necessary for him Obesity - has been losing weight intentionally outpatient over the past 2 years. Will check A1c outpatient Smoker - 1.5ppd, offered nicotine patch. 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 The left ventricular systolic function is normal and the ejection fraction is within normal range. The Ejection Fraction is 55-60%. There is borderline concentric left ventricular hypertrophy. There is no significant aortic valvular stenosis. Doppler and Color Flow revealed no significant aortic regurgitation. Doppler and Color-flow revealed trace mitral regurgitation. Doppler and Color Flow revealed no tricuspid valve regurgitation noted. Greater than 30 minutes spent on discharge Discharge Information Condition at Discharge: Improved Follow Up: Weeks Disposition/Orders: D/C to Home Scheduled Amlodipine Besylate (Amlodipine Besylate) 10 Mg Tablet, 10 MG PO DAILY for 30 for 30 Days, #30 Ref 2 Prescribed by: ZHEN MEYER MD on 08/09/18 4418 Chlorthalidone (Chlorthalidone ) 25 Mg Tablet, 25 MG PO DAILY for HTN for 30 Days, #30 Ref 2 Prescribed by: ZHEN MEYER MD on 08/09/18954 [Nicotine 21MG] 1 PATCH PATCH, 1 PATCH TD DAILY for Smoking cessation for 30 Days, #30 Ref 3 Prescribed by: ZHEN MEYER MD on 08/09/18954 Discontinued Medications Lisinopril (Lisinopril) 10 Mg Tablet, 1 TAB PO DAILY, #20 Ref 0 Prescribed by: DICK ALVES APRN on 08/08/18 1558 ZHEN MEYER MD August 09, 2018 11:04
[2018-08-09 11:05] LABS: CALCIUM 9.2 mg/dL (8.5-10.1); CREATININE 0.7 mg/dL (0.7-1.3); GFR 132.4; POTASSIUM 3.9 mmol/L (3.5-5.1)
--- NOTE | 2018-08-09 12:02 | CARD ---
MR#: [id number] Date of Study: 08/09/2018 Ordering Physician: ZHEN MEYER, Referring Physician: ZHEN MEYER, Tech: Carley Pompa [facility] APPROVED REPORT EXAM: Two-dimensional and M-mode echocardiogram with Doppler and color Doppler. Other Information Quality : AverageHR: 95bpm Rhythm : NSR INDICATION Hypertension/HCVD 2D DIMENSIONS RVDd3.0 (2.9-3.5cm)Left Atrium(2D)4.1 (1.6-4.0cm) IVSd1.2 (0.7-1.1cm)Aortic Root(2D)3.6 (2.0-3.7cm) LVDd5.3 (3.9-5.9cm)LVOT Diameter2.3 (1.8-2.4cm) PWd1.1 (0.7-1.1cm)LVDs3.9 (2.5-4.0cm) FS (%) 27.1 %SV71.3 ml M-Mode DIMENSIONS Left Atrium(MM)4.16 (2.5-4.0cm)Aortic Root3.61 (2.2-3.7cm) Aortic Valve AoV Peak Eugenio.124.8cm/sAoV VTI24.1cm AO Peak GR.6.2mmHgLVOT Peak Eugenio.88.8cm/s AO Mean GR.4mmHgAVA (VMAX)3.08cm2 MAHENDRA (VTI)3.00cm2 Mitral Valve MV E Pxsttrdi90.7cm/sMV DECEL [id number] MV A Dqekbfmg36.2cm/sE/A Ratio0.9 Pulmonary Valve PV Peak Nazzuknf21.1cm/s LEFT VENTRICLE The left ventricle is normal size. There is borderline concentric left ventricular hypertrophy. The l eft ventricular systolic function is normal and the ejection fraction is within normal range. The Eje ction Fraction is 55-60%. There is normal LV segmental wall motion. The left ventricular diastolic fu nction and filling is normal for age. RIGHT VENTRICLE The right ventricle is normal size. There is normal right ventricular wall thickness. The right ventr icular systolic function is normal. ATRIA The left atrium is mildly dilated. The right atrium size is normal. The interatrial septum is intact with no evidence for an atrial septal defect or patent foramen ovale as noted on 2-D or Doppler imagi ng. AORTIC VALVE The aortic valve is normal in structure and function. The aortic valve is trileaflet. Doppler and Col or Flow revealed no significant aortic regurgitation. There is no significant aortic valvular stenosi s. There is no aortic valvular vegetation. MITRAL VALVE The mitral valve is normal in structure and function. There is no evidence of mitral valve prolapse. There is no mitral valve stenosis. Doppler and Color-flow revealed trace mitral regurgitation. TRICUSPID VALVE The tricuspid valve is normal in structure and function. Doppler and Color Flow revealed no tricuspid valve regurgitation noted. There is no tricuspid valve prolapse or vegetation. There is no tricuspid valve stenosis. PULMONIC VALVE The pulmonic valve is not well visualized. GREAT VESSELS The aortic root is normal in size. The ascending aorta is normal in size. The IVC is normal in size a nd collapses >50% with inspiration. PERICARDIAL EFFUSION There is no evidence of significant pericardial effusion. Critical Notification Critical Value: No <Conclusion> The left ventricle is normal size. The left ventricular systolic function is normal and the ejection fraction is within normal range. The Ejection Fraction is 55-60%. There is borderline concentric left ventricular hypertrophy. There is no significant aortic valvular stenosis. Doppler and Color Flow revealed no significant aortic regurgitation. Doppler and Color-flow revealed trace mitral regurgitation. Doppler and Color Flow revealed no tricuspid valve regurgitation noted. Signed by : Crispin Mcdermott MD Electronically Approved : 08/09/2018 12:01:43
--- NOTE | 2018-08-09 13:51 | NUR ---
SS following for discharge planning. SS reviewed pt chart. Pt is from home and is currently on room air. Discharge order on the chart for home with self care.
--- NOTE | 2018-08-09 14:12 | NUR ---
Discharge Note: JOHNNY NOE Discharge instructions and discharge home medications reviewed with Patient and a copy given. All questions have been answered and understanding verbalized. The following instructions and handouts were given: diet, hyper-hypotension,follow up/get a primary physician and job placement officer, and medications Discontinued lines and drains: IV removed, no lines. Patient discharged to home, ambulated to car with .
[2018-08-12 13:19] LABS: ALDOSTERONE 3.2 ng/dL (0.0-30.0)
== END 2018-08-09 13:30 | disposition home or self-care (01) | DRG 305 ==
LOC: ER 13:19 → 2 SOUTH 17:57
PROVIDERS: ADMIT Internal Medicine; ATTEND Internal Medicine
DX: I16.1 Hypertensive emergency (principal); E66.9 Obesity, unspecified; F17.210 Nicotine dependence, cigarettes, uncomplicated; H66.90 Otitis media, unspecified, unspecified ear; I11.9 Hypertensive heart disease without heart failure; R74.0 Nonspecific elevation of levels of transaminase and lactic acid dehydrogenase [LDH]; Z68.31 Body mass index [BMI] 31.0-31.9, adult; Z71.6 Tobacco abuse counseling
CPT/HCPCS: 36415; 70450; 71045; 80048; 80053; 82088; 82550; 84244; 84484; 85025; 93005; 93306; 93975; 96374; 96375; 99406; J0360; J3490; 99285-25

== ENCOUNTER 2020-05-11 20:57 | Inpatient (IN) | payer BC ==
[~2020-05-11] VITALS: Ht 182.9 cm; Wt 111.4 kg
[~2020-05-11 20:57] MED LIST: AMLO-187 PO; CHLO25TA10 PO; LISI10TA16 PO; Nicotine 21MG TD
[2020-05-11 21:40] LABS: BASO # 0.1 x10^3/uL (0.0-0.2); BASO % 0 % (0-3); EOS # 8.1 x10^3/uL (0.0-0.7); EOS % 30 % (0-3); HEMATOCRIT 46.3 % (39.0-53.0); HEMOGLOBIN 15.9 g/dL (13.0-17.5); LYMPH # 2.6 x10^3/uL (1.0-4.8); LYMPH % 10 % (24-48); MEAN CORPUSCULAR HEMOGLOBIN 30 pg (25-35); MEAN CORPUSCULAR HGB CONC 34 g/dL (31-37); MEAN CORPUSCULAR VOLUME 88 fL (79-100); MONO # 0.7 x10^3/uL (0.0-1.1); MONO % 3 % (0-9); NEUT # 15.8 x10^3/uL (1.8-7.7); NEUT % 58 % (31-73); PLATELET COUNT 263 x10^3/uL (140-400); RED BLOOD COUNT 5.29 x10^6/uL (4.30-5.70); RED CELL DISTRIBUTION WIDTH 13.3 % (11.5-14.5); WHITE BLOOD COUNT 27.4 x10^3/uL (4.0-11.0)
--- NOTE | 2020-05-11 21:53 | PHYS DOC ---
Past Medical History Past Medical History: No Pertinent History Past Surgical History: No Surgical History Smoking Status: Current Every Day Smoker Alcohol Use: Occasionally Drug Use: None Adult General Chief Complaint Chief Complaint: SHORTNESS OF BREATH HPI HPI Patient is a 34 year old male with a past medical history of hypertension presents emergency department for worsening shortness of breath developing over the last 1 to 2 hours. Patient states over the last 3 days he is developing se nsation of shortness of breath as well as moderate and cough. Has been associated with night sweats, nausea and episodes of diarrhea. Patient states that increased in severity today. Patient does admit to smoking history was never been diagnosed with emphysema. Currently denies any chest pain Review of Systems Review of Systems Constitutional: Denies fever or chills [] Eyes: Denies change in visual acuity, redness, or eye pain [] HENT: Denies nasal congestion or sore throat [] Respiratory: Denies cough or shortness of breath [] Cardiovascular: No additional information not addressed in HPI [] GI: Denies abdominal pain, nausea, vomiting, bloody stools or diarrhea [] : Denies dysuria or hematuria [] Musculoskeletal: Denies back pain or joint pain [] Integument: Denies rash or skin lesions [] Neurologic: Denies headache, focal weakness or sensory changes [] Endocrine: Denies polyuria or polydipsia [] All other systems were reviewed and found to be within normal limits, except as documented in this note. Current Medications Current Medications Current Medications Medications (Trade) Dose Ordered Sig/Jose Start Time Stop Time Status Last Admin Dose Admin Albuterol/ Ipratropium (Duoneb) 3 ml 1X ONCE 05/12/20 01:30 05/12/20 01:31 Allergies Allergies Allergies Coded Allergies Type Severity Reaction Last Updated Verified No Known Drug Allergies 08/24/17 No Physical Exam Physical Exam Constitutional: Well developed, well nourished, no acute distress, non-toxic appearance. [] HENT: Normocephalic, atraumatic, bilateral external ears normal, oropharynx moist, no oral exudates, nose normal. [] Eyes: PERRLA, EOMI, conjunctiva normal, no discharge. [] Neck: Normal range of motion, no tenderness, supple, no stridor. [] Cardiovascular:Heart rate regular rhythm, no murmur [] Lungs & Thorax: Significant wheezing bilaterally [] Abdomen: Bowel sounds normal, soft, no tenderness, no masses, no pulsatile masses. [] Skin: Warm, dry, no erythema, no rash. [] Back: No tenderness, no CVA tenderness. [] Extremities: No tenderness, no cyanosis, no clubbing, ROM intact, no edema. [] Neurologic: Alert and oriented X 3, normal motor function, normal sensory function, no focal deficits noted. [] Psychologic: Affect normal, judgement normal, mood normal. [] Current Patient Data Vital Signs Vital Signs Date Time Temp Pulse Resp B/P (MAP) Pulse Ox O2 Delivery O2 Flow Rate FiO2 05/11/20 23:29 94 NonRebreather Mask 05/11/20 21:10 98.7 92 19 138/88 (105) 98.7 Lab Values Laboratory Tests Test 05/11/20 21:20 05/11/20 21:54 05/11/20 23:50 White Blood Count 27.4 x10^3/uL (4.0-11.0) H Red Blood Count 5.29 x10^6/uL (4.30-5.70) Hemoglobin 15.9 g/dL (13.0-17.5) Hematocrit 46.3 % (39.0-53.0) Mean Corpuscular Volume 88 fL (79-100) Mean Corpuscular Hemoglobin 30 pg (25-35) Mean Corpuscular Hemoglobin Concent 34 g/dL (31-37) Red Cell Distribution Width 13.3 % (11.5-14.5) Platelet Count 263 x10^3/uL (140-400) Neutrophils (%) (Auto) 58 % (31-73) Lymphocytes (%) (Auto) 10 % (24-48) L Monocytes (%) (Auto) 3 % (0-9) Eosinophils (%) (Auto) 30 % (0-3) H Basophils (%) (Auto) 0 % (0-3) Neutrophils # (Auto) 15.8 x10^3/uL (1.8-7.7) H Lymphocytes # (Auto) 2.6 x10^3/uL (1.0-4.8) Monocytes # (Auto) 0.7 x10^3/uL (0.0-1.1) Eosinophils # (Auto) 8.1 x10^3/uL (0.0-0.7) H Basophils # (Auto) 0.1 x10^3/uL (0.0-0.2) Segmented Neutrophils % 67 % (35-66) H Lymphocytes % 8 % (24-48) L Eosinophils % 23 % (0-5) H Basophils % 1 % (0-3) Myelocytes % 1 % (0-0) H Platelet Estimate Adequate (ADEQUATE) D-Dimer (Carlene) 0.35 ug/mlFEU (0.00-0.50) Sodium Level 136 mmol/L (136-145) Potassium Level 3.5 mmol/L (3.5-5.1) Chloride Level 98 mmol/L (98-107) Carbon Dioxide Level 27 mmol/L (21-32) Anion Gap 11 (6-14) Blood Urea Nitrogen 12 mg/dL (8-26) Creatinine 0.8 mg/dL (0.7-1.3) Estimated GFR (Cockcroft-Gault) 112.0 BUN/Creatinine Ratio 15 (6-20) Glucose Level 123 mg/dL (70-99) H Calcium Level 9.4 mg/dL (8.5-10.1) Total Bilirubin 1.0 mg/dL (0.2-1.0) Aspartate Amino Transferase (AST) 27 U/L (15-37) Alanine Aminotransferase (ALT) 60 U/L (16-63) Alkaline Phosphatase 100 U/L (46-116) Creatine Kinase 284 U/L (39-308) Troponin I Quantitative < 0.017 ng/mL (0.000-0.055) RV-Anq-W-Type Natriuretic Peptide 36 pg/mL (0-124) Total Protein 7.8 g/dL (6.4-8.2) Albumin 4.4 g/dL (3.4-5.0) Albumin/Globulin Ratio 1.3 (1.0-1.7) Influenza Type A Antigen Negative (NEGATIVE) Influenza Type B Antigen Negative (NEGATIVE) Urine Collection Type Unknown Urine Color Megan Urine Clarity Clear Urine pH 5.5 (<5.0-8.0) Urine Specific [place] 1.025 (1.000-1.030) Urine Protein Negative mg/dL (NEG-TRACE) Urine Glucose (UA) Negative mg/dL (NEG) Urine Ketones (Stick) Negative mg/dL (NEG) Urine Blood Negative (NEG) Urine Nitrite Negative (NEG) Urine Bilirubin Negative (NEG) Urine Urobilinogen Dipstick 1.0 mg/dL (0.2 mg/dL) Urine Leukocyte Esterase Negative (NEG) Urine RBC 1-2 /HPF (0-2) Urine WBC 1-4 /HPF (0-4) Urine Squamous Epithelial Cells Few /LPF Urine Amorphous Sediment Present /HPF Urine Bacteria Few /HPF (0-FEW) Urine Hyaline Casts Few /HPF Urine Granular Casts Few /HPF Urine Mucus Marked /LPF Laboratory Tests 05/11/20 21:20 Laboratory Tests 05/11/20 21:20 EKG EKG [] Radiology/Procedures Radiology/Procedures [] Course & Med Decision Making Course & Med Decision Making Pertinent Labs and Imaging studies reviewed. (See chart for details) [34M presenting with acute hypoxia and shortness of breath concerning for COVID- 19 pneumonia or underlying bacterial pneumonia. Will obtain ACS work-up and chest x-ray. Of note patient was placed on nonrebreather on arrival due to significant hypoxia. Work-up at this point consistent with an acute COPD exacerbation. At this time will admit for oxygen, observation and pulmonary evaluation Dragon Disclaimer Dragon Disclaimer This electronic medical record was generated, in whole or in part, using a voice recognition dictation system. Departure Departure Referrals: JOHAN BAGLEY MD (PCP) MARY COLLINS MD May 11, 2020 21:53
[2020-05-11 21:58] LABS: CALCIUM 9.4 mg/dL (8.5-10.1); CREATININE 0.8 mg/dL (0.7-1.3); POTASSIUM 3.5 mmol/L (3.5-5.1)
[2020-05-11 22:05] LABS: ALBUMIN 4.4 g/dL (3.4-5.0); ALBUMIN/GLOBULIN RATIO 1.3 (1.0-1.7); TOTAL PROTEIN 7.8 g/dL (6.4-8.2)
--- NOTE | 2020-05-11 22:28 | RAD ---
Exam: Chest one view INDICATION: Short of air TECHNIQUE: Frontal view of the chest Comparisons: 08/08/2018 FINDINGS: The cardiomediastinal silhouette and pulmonary vessels are within normal limits. The lung and pleural spaces are clear. IMPRESSION: No acute cardiopulmonary process. Electronically signed by: Florecita Donahue MD (05/11/2020 10:25 PM) SIOBHAN
[2020-05-11] MEDS ORDERED: IPRATRPIUM/ALBUTEROL 0.5/2.5MG 3 ML NEBU. NEB ONE (22:30)
[2020-05-11 23:06] LABS: INFLUENZA A PATIENT NEGATIVE (NEGATIVE); INFLUENZA B PATIENT NEGATIVE (NEGATIVE)
[2020-05-12 00:05] LABS: BILIRUBIN,URINE NEGATIVE (NEG); CLARITY,URINE CLEAR; COLOR,URINE AMBER; NITRITE,URINE NEGATIVE (NEG); PH,URINE 5.5 (<5.0-8.0); PROTEIN,URINE NEGATIVE (NEG-TRACE)
[2020-05-12 00:42] LABS: BACTERIA,URINE FEW /HPF (0-FEW)
[2020-05-12 00:43] LABS: AMORPHOUS SEDIMENT,UR PRESENT /HPF; GRANULAR CASTS,URINE FEW /HPF; HYALINE CASTS, URINE FEW /HPF
[2020-05-12 00:56] LABS: % BASOS 1 % (0-3); % EOS 23 % (0-5); % LYMPHS 8 % (24-48); % MYELOS 1 % (0-0); % SEGS 67 % (35-66)
[2020-05-12 00:57] LABS: PLT ESTIMATE ADEQUATE (ADEQUATE)
[2020-05-12] MEDS ORDERED: ONDANSETRON PF 4 MG/2 ML VIAL. IV PRN (01:30)
[2020-05-12] MEDS ORDERED: MORPHINE SULFATE 4 MG/ML VIAL. IV PRN (01:30)
[2020-05-12] MEDS ORDERED: IPRATRPIUM/ALBUTEROL 0.5/2.5MG 3 ML NEBU. NEB ONE (01:30)
[2020-05-12 02:14] LABS: ISTAT BE VENOUS -1 mmol/L (0-3); ISTAT HCO3 VEN 25 mmol/L (24-28); ISTAT PCO2 VEN 46 mmHg (41-51); ISTAT PH VEN 7.34 (7.32-7.42); ISTAT PO2 VEN 93 mmHg (20-40); ISTAT SAT O2 VEN 97 %; ISTAT TCO2 VEN 26 mmol/L (21-32)
[2020-05-12 03:15] VITALS: BP 135/96
[2020-05-12] MEDS ORDERED: VENL75CA6 PO (03:45)
--- NOTE | 2020-05-12 06:34 | EKG ---
[facility] [address] [place] [address] Test Date: 2020-05-11 Test Time: 21:53:51 Pat Name: JOHNNY NOE Department: Room: Gender: M Utility Sales Representative: : 1985 Requested By: MARY COLLINS Order Number: [id number] Reading MD: Measurements Intervals [place] Rate: 101 P: 42 TN: 160 QRS: 37 QRSD: 84 T: 51 QT: 340 QTc: 447 Interpretive Statements SINUS TACHYCARDIA OTHERWISE NORMAL ECG RI6.02 No previous ECG available for comparison
[2020-05-12 07:00] VITALS: BP 142/90
--- NOTE | 2020-05-12 07:51 | PDOC1 ---
History and Physical Date of Service: DOS: DATE: 05/12/20 TIME: 07:49 Chief Complaint: Chief Complain: Shortness of breath History of Present Illness: HPI: Patient is a 34-year-old male with no significant past medical history except for hypertension and current every day smoker who comes in with shortness of breath for the past couple of hours. Patient also in the past 3 days has also developed some cough that has been associated with some nighttime sweating and nausea and episodes of diarrhea. Worsening today. Denies fevers, chest pain, abdominal pain, dysuria or syncope. Past Medical/Surgical History: PMH/PSH: No past medical or surgical history Allergies: Allergies: Coded Allergies: No Known Drug Allergies (Unverified , 08/24/17) Family History: Family History: Reviewed with no relevant findings Social History: Social History: Current every day smoker Current Medications: Current Medications Current Medications Albuterol/ Ipratropium (Duoneb) 3 ml 1X ONCE NEB Last administered on 05/11/20at 23:29; Start 05/11/20 at 22:30; Stop 05/11/20 at 22:31; Status DC Albuterol/ Ipratropium (Duoneb) 3 ml 1X ONCE NEB Last administered on 05/12/20at 02:23; Start 05/12/20 at 01:30; Stop 05/12/20 at 01:31; Status DC Ondansetron HCl (Zofran) 4 mg PRN Q8HRS PRN IV NAUSEA/VOMITING 1ST CHOICE; Start 05/12/20 at 01:30; Stop 05/13/20 at 01:29 Morphine Sulfate (Morphine Sulfate) 4 mg PRN Q2HR PRN IV SEVERE PAIN 7-10; Start 05/12/20 at 01:30; Stop 05/13/20 at 01:29 Active Scripts Active Amlodipine Besylate 10 Mg Tablet 10 Mg PO DAILY 30 Days Chlorthalidone (Chlorthalidone) 25 Mg Tablet 25 Mg PO DAILY 30 Days [Nicotine 21MG] 1 PATCH Patch 1 Patch TD DAILY 30 Days Reported Venlafaxine Hcl Er (Venlafaxine Hcl) 75 Mg Cap.er.24h 1 Cap PO DAILY ROS: Review of Systems Review of System REVIEW OF SYSTEMS: GENERAL: Denies weakness SKIN: No bruising, hair changes or rashes. EYES: No blurred, double or loss of vision. NOSE AND THROAT: No history of nosebleeds, hoarseness or sore throat. HEART: No history of palpitations, chest pain or shortness of breath on exertion. LUNGS: Denies cough, hemoptysis, wheezing or shortness of breath. GASTROINTESTINAL: Denies changes in appetite, nausea, vomiting, diarrhea or constipation. GENITOURINARY: No history of frequency, urgency, hesitancy or nocturia. NEUROLOGIC: Denies history of numbness, tingling, or tremor. PSYCHIATRIC: No history of panic, anxiety or depression. ENDOCRINE: No history of heat or cold intolerance, polyuria or polydipsia. EXTREMITIES: Denies joint pain, pain on walking or stiffness. Physical Exam: Vital Signs: Vital Signs Date Time Temp Pulse Resp B/P (MAP) Pulse Ox O2 Delivery O2 Flow Rate FiO2 05/12/20 07:00 97.9 90 28 142/90 (107) 91 NonRebreather Mask 15.0 97.9 Physcial Exam: GEN: No apparent distress. Alert and oriented HEENT: Normal cephalic, atraumatic, external auditory canals are patent EYES: Extraocular muscles are intact, pupil are equally round and reactive to light and accommodation MUSCULOSKELETAL: Well developed , well nourished, good range of motion ENDOCRINE: No thyromegaly was palpated LYMPHATICS: No cervical chain or axillary nodes were noted HEMATOPOIETIC: No bruising NECK: Supple, no JVD, no thyromegaly was noted LUNGS: Clear to auscultation in all lung álvarez without rhonchi or wheezing HEART: RRR, S!, S2 present. Peripheral pulses intact, no obvious murmurs noted ABDOMEN: Soft, nontender. Positive bowel sounds, no organomegaly, normal jason wel sounds EXTREMITIES: Without clubbing, cyanosis, or edema. Pedal pulses intact. Negative Homans sign NEUROLOGIC: Normal speech and tone. A&O x 3, moves all extremities, no obvious focal deficits PSYCHIATRIC: Normal affect, normal mood. Stable SKIN: No ulcerations or rashes, good skin turgor, no jaundice VASCULAR: Good capillary refill, neurovascular bundle appears to be intact Labs: Labs: Laboratory Tests Test 05/11/20 21:20 05/11/20 21:54 05/11/20 23:50 05/12/20 02:06 White Blood Count 27.4 x10^3/uL (4.0-11.0) Red Blood Count 5.29 x10^6/uL (4.30-5.70) Hemoglobin 15.9 g/dL (13.0-17.5) Hematocrit 46.3 % (39.0-53.0) Mean Corpuscular Volume 88 fL (79-100) Mean Corpuscular Hemoglobin 30 pg (25-35) Mean Corpuscular Hemoglobin Concent 34 g/dL (31-37) Red Cell Distribution Width 13.3 % (11.5-14.5) Platelet Count 263 x10^3/uL (140-400) Neutrophils (%) (Auto) 58 % (31-73) Lymphocytes (%) (Auto) 10 % (24-48) Monocytes (%) (Auto) 3 % (0-9) Eosinophils (%) (Auto) 30 % (0-3) Basophils (%) (Auto) 0 % (0-3) Neutrophils # (Auto) 15.8 x10^3/uL (1.8-7.7) Lymphocytes # (Auto) 2.6 x10^3/uL (1.0-4.8) Monocytes # (Auto) 0.7 x10^3/uL (0.0-1.1) Eosinophils # (Auto) 8.1 x10^3/uL (0.0-0.7) Basophils # (Auto) 0.1 x10^3/uL (0.0-0.2) Segmented Neutrophils % 67 % (35-66) Lymphocytes % 8 % (24-48) Eosinophils % 23 % (0-5) Basophils % 1 % (0-3) Myelocytes % 1 % (0-0) Platelet Estimate Adequate (ADEQUATE) D-Dimer (Carlene) 0.35 ug/mlFEU (0.00-0.50) Sodium Level 136 mmol/L (136-145) Potassium Level 3.5 mmol/L (3.5-5.1) Chloride Level 98 mmol/L (98-107) Carbon Dioxide Level 27 mmol/L (21-32) Anion Gap 11 (6-14) Blood Urea Nitrogen 12 mg/dL (8-26) Creatinine 0.8 mg/dL (0.7-1.3) Estimated GFR (Cockcroft-Gault) 112.0 BUN/Creatinine Ratio 15 (6-20) Glucose Level 123 mg/dL (70-99) Calcium Level 9.4 mg/dL (8.5-10.1) Total Bilirubin 1.0 mg/dL (0.2-1.0) Aspartate Amino Transf (AST/SGOT) 27 U/L (15-37) Alanine Aminotransferase (ALT/SGPT) 60 U/L (16-63) Alkaline Phosphatase 100 U/L (46-116) Creatine Kinase 284 U/L (39-308) Troponin I Quantitative < 0.017 ng/mL (0.000-0.055) SA-Cdi-Y-Type Natriuretic Peptide 36 pg/mL (0-124) Total Protein 7.8 g/dL (6.4-8.2) Albumin 4.4 g/dL (3.4-5.0) Albumin/Globulin Ratio 1.3 (1.0-1.7) Influenza Type A Antigen Negative (NEGATIVE) Influenza Type B Antigen Negative (NEGATIVE) Urine Collection Type Unknown Urine Color Megan Urine Clarity Clear Urine pH 5.5 (<5.0-8.0) Urine Specific [place] 1.025 (1.000-1.030) Urine Protein Negative mg/dL (NEG-TRACE) Urine Glucose (UA) Negative mg/dL (NEG) Urine Ketones (Stick) Negative mg/dL (NEG) Urine Blood Negative (NEG) Urine Nitrite Negative (NEG) Urine Bilirubin Negative (NEG) Urine Urobilinogen Dipstick 1.0 mg/dL (0.2 mg/dL) Urine Leukocyte Esterase Negative (NEG) Urine RBC 1-2 /HPF (0-2) Urine WBC 1-4 /HPF (0-4) Urine Squamous Epithelial Cells Few /LPF Urine Amorphous Sediment Present /HPF Urine Bacteria Few /HPF (0-FEW) Urine Hyaline Casts Few /HPF Urine Granular Casts Few /HPF Urine Mucus Marked /LPF Bedside Venous pH 7.34 (7.32-7.42) Bedside Venous pCO2 46 mmHg (41-51) Bedside Venous pO2 93 mmHg (20-40) Venous Blood HCO3 25 mmol/L (24-28) POC Venous O2 Saturation (Jeanne) 97 % Bedside FiO2 27.0 Laboratory Tests Test 05/11/20 21:20 05/11/20 21:54 05/11/20 23:50 05/12/20 02:06 White Blood Count 27.4 x10^3/uL (4.0-11.0) Red Blood Count 5.29 x10^6/uL (4.30-5.70) Hemoglobin 15.9 g/dL (13.0-17.5) Hematocrit 46.3 % (39.0-53.0) Mean Corpuscular Volume 88 fL (79-100) Mean Corpuscular Hemoglobin 30 pg (25-35) Mean Corpuscular Hemoglobin Concent 34 g/dL (31-37) Red Cell Distribution Width 13.3 % (11.5-14.5) Platelet Count 263 x10^3/uL (140-400) Neutrophils (%) (Auto) 58 % (31-73) Lymphocytes (%) (Auto) 10 % (24-48) Monocytes (%) (Auto) 3 % (0-9) Eosinophils (%) (Auto) 30 % (0-3) Basophils (%) (Auto) 0 % (0-3) Neutrophils # (Auto) 15.8 x10^3/uL (1.8-7.7) Lymphocytes # (Auto) 2.6 x10^3/uL (1.0-4.8) Monocytes # (Auto) 0.7 x10^3/uL (0.0-1.1) Eosinophils # (Auto) 8.1 x10^3/uL (0.0-0.7) Basophils # (Auto) 0.1 x10^3/uL (0.0-0.2) Segmented Neutrophils % 67 % (35-66) Lymphocytes % 8 % (24-48) Eosinophils % 23 % (0-5) Basophils % 1 % (0-3) Myelocytes % 1 % (0-0) Platelet Estimate Adequate (ADEQUATE) D-Dimer (Carlene) 0.35 ug/mlFEU (0.00-0.50) Sodium Level 136 mmol/L (136-145) Potassium Level 3.5 mmol/L (3.5-5.1) Chloride Level 98 mmol/L (98-107) Carbon Dioxide Level 27 mmol/L (21-32) Anion Gap 11 (6-14) Blood Urea Nitrogen 12 mg/dL (8-26) Creatinine 0.8 mg/dL (0.7-1.3) Estimated GFR (Cockcroft-Gault) 112.0 BUN/Creatinine Ratio 15 (6-20) Glucose Level 123 mg/dL (70-99) Calcium Level 9.4 mg/dL (8.5-10.1) Total Bilirubin 1.0 mg/dL (0.2-1.0) Aspartate Amino Transf (AST/SGOT) 27 U/L (15-37) Alanine Aminotransferase (ALT/SGPT) 60 U/L (16-63) Alkaline Phosphatase 100 U/L (46-116) Creatine Kinase 284 U/L (39-308) Troponin I Quantitative < 0.017 ng/mL (0.000-0.055) QV-Tli-B-Type Natriuretic Peptide 36 pg/mL (0-124) Total Protein 7.8 g/dL (6.4-8.2) Albumin 4.4 g/dL (3.4-5.0) Albumin/Globulin Ratio 1.3 (1.0-1.7) Influenza Type A Antigen Negative (NEGATIVE) Influenza Type B Antigen Negative (NEGATIVE) Urine Collection Type Unknown Urine Color Megan Urine Clarity Clear Urine pH 5.5 (<5.0-8.0) Urine Specific [place] 1.025 (1.000-1.030) Urine Protein Negative mg/dL (NEG-TRACE) Urine Glucose (UA) Negative mg/dL (NEG) Urine Ketones (Stick) Negative mg/dL (NEG) Urine Blood Negative (NEG) Urine Nitrite Negative (NEG) Urine Bilirubin Negative (NEG) Urine Urobilinogen Dipstick 1.0 mg/dL (0.2 mg/dL) Urine Leukocyte Esterase Negative (NEG) Urine RBC 1-2 /HPF (0-2) Urine WBC 1-4 /HPF (0-4) Urine Squamous Epithelial Cells Few /LPF Urine Amorphous Sediment Present /HPF Urine Bacteria Few /HPF (0-FEW) Urine Hyaline Casts Few /HPF Urine Granular Casts Few /HPF Urine Mucus Marked /LPF Bedside Venous pH 7.34 (7.32-7.42) Bedside Venous pCO2 46 mmHg (41-51) Bedside Venous pO2 93 mmHg (20-40) Venous Blood HCO3 25 mmol/L (24-28) POC Venous O2 Saturation (Jeanne) 97 % Bedside FiO2 27.0 Images: Images CXR Impression: 1. No acute cardiopulmonary process. Assessment/Plan Assessment/Plan Acute hypoxic respiratory failure Investigation for Covid infection Tobacco misuse Admit to medicine for further management Pulmonology consult Continue IV thiamine and vitamin C IV 4 mg dexamethasone Daily Titrate O2 supplementation to maintain O2 saturation greater than 92% Ambulation for DVT prophylaxis Protonix GI prophylaxis ADA diet Full code Discussed with RN and SW Disposition inpatient management as above Surrogate decision maker is undesignated Justifications for Admission Other Justification ROSA TAYLOR MD May 12, 2020 07:50
[2020-05-12 11:00] VITALS: BP 134/91
[2020-05-12] MEDS: PANTOPRAZOLE 40 MG TABLET.DR. PO SCH (12:23)
[2020-05-12] MEDS: THIAMINE 100 MG TABLET. PO SCH (12:23)
[2020-05-12] MEDS: IPRATROPIUM/ALBUTEROL 20/100mcg/INH INHALER. INH SCH ×3 (12:24→21:40)
[2020-05-12] MEDS: DEXAMETHASONE SOD PHOS 4 MG/ML VIAL IVP SCH (12:24)
[2020-05-12] MEDS ORDERED: IBUPROFEN 400 MG TABLET. PO PRN (12:45)
[2020-05-12] MEDS ORDERED: DEXTROSE 50% 25 GM / 50ML DISP.SYRIN. IV PRN (12:45)
[2020-05-12] MEDS ORDERED: DOCUSATE SODIUM 100 MG CAPSULE. PO PRN (12:45)
[2020-05-12] MEDS ORDERED: SENNOSIDES 8.6 MG TABLET PO PRN (12:45)
[2020-05-12] MEDS ORDERED: ACETAMINOPHEN 325 MG TABLET. PO PRN (12:45)
[2020-05-12] MEDS ORDERED: ONDANSETRON PF 4 MG/2 ML VIAL. IVP PRN (12:45)
--- NOTE | 2020-05-12 13:09 | PDOC ---
PULMONARY PROGRESS NOTES DATE: 05/12/20 TIME: 13:08 Vitals Vital Signs Date Time Temp Pulse Resp B/P (MAP) Pulse Ox O2 Delivery O2 Flow Rate FiO2 05/12/20 11:00 97.3 101 28 134/91 (105) 93 NonRebreather Mask 15.0 97.3 Labs Laboratory Tests Test 05/11/20 21:20 05/11/20 21:54 05/11/20 23:50 05/12/20 02:06 White Blood Count 27.4 x10^3/uL (4.0-11.0) Red Blood Count 5.29 x10^6/uL (4.30-5.70) Hemoglobin 15.9 g/dL (13.0-17.5) Hematocrit 46.3 % (39.0-53.0) Mean Corpuscular Volume 88 fL (79-100) Mean Corpuscular Hemoglobin 30 pg (25-35) Mean Corpuscular Hemoglobin Concent 34 g/dL (31-37) Red Cell Distribution Width 13.3 % (11.5-14.5) Platelet Count 263 x10^3/uL (140-400) Neutrophils (%) (Auto) 58 % (31-73) Lymphocytes (%) (Auto) 10 % (24-48) Monocytes (%) (Auto) 3 % (0-9) Eosinophils (%) (Auto) 30 % (0-3) Basophils (%) (Auto) 0 % (0-3) Neutrophils # (Auto) 15.8 x10^3/uL (1.8-7.7) Lymphocytes # (Auto) 2.6 x10^3/uL (1.0-4.8) Monocytes # (Auto) 0.7 x10^3/uL (0.0-1.1) Eosinophils # (Auto) 8.1 x10^3/uL (0.0-0.7) Basophils # (Auto) 0.1 x10^3/uL (0.0-0.2) Segmented Neutrophils % 67 % (35-66) Lymphocytes % 8 % (24-48) Eosinophils % 23 % (0-5) Basophils % 1 % (0-3) Myelocytes % 1 % (0-0) Platelet Estimate Adequate (ADEQUATE) D-Dimer (Carlene) 0.35 ug/mlFEU (0.00-0.50) Sodium Level 136 mmol/L (136-145) Potassium Level 3.5 mmol/L (3.5-5.1) Chloride Level 98 mmol/L (98-107) Carbon Dioxide Level 27 mmol/L (21-32) Anion Gap 11 (6-14) Blood Urea Nitrogen 12 mg/dL (8-26) Creatinine 0.8 mg/dL (0.7-1.3) Estimated GFR (Cockcroft-Gault) 112.0 BUN/Creatinine Ratio 15 (6-20) Glucose Level 123 mg/dL (70-99) Calcium Level 9.4 mg/dL (8.5-10.1) Total Bilirubin 1.0 mg/dL (0.2-1.0) Aspartate Amino Transf (AST/SGOT) 27 U/L (15-37) Alanine Aminotransferase (ALT/SGPT) 60 U/L (16-63) Alkaline Phosphatase 100 U/L (46-116) Creatine Kinase 284 U/L (39-308) Troponin I Quantitative < 0.017 ng/mL (0.000-0.055) AI-Tmw-Q-Type Natriuretic Peptide 36 pg/mL (0-124) Total Protein 7.8 g/dL (6.4-8.2) Albumin 4.4 g/dL (3.4-5.0) Albumin/Globulin Ratio 1.3 (1.0-1.7) Influenza Type A Antigen Negative (NEGATIVE) Influenza Type B Antigen Negative (NEGATIVE) Urine Collection Type Unknown Urine Color Megan Urine Clarity Clear Urine pH 5.5 (<5.0-8.0) Urine Specific [place] 1.025 (1.000-1.030) Urine Protein Negative mg/dL (NEG-TRACE) Urine Glucose (UA) Negative mg/dL (NEG) Urine Ketones (Stick) Negative mg/dL (NEG) Urine Blood Negative (NEG) Urine Nitrite Negative (NEG) Urine Bilirubin Negative (NEG) Urine Urobilinogen Dipstick 1.0 mg/dL (0.2 mg/dL) Urine Leukocyte Esterase Negative (NEG) Urine RBC 1-2 /HPF (0-2) Urine WBC 1-4 /HPF (0-4) Urine Squamous Epithelial Cells Few /LPF Urine Amorphous Sediment Present /HPF Urine Bacteria Few /HPF (0-FEW) Urine Hyaline Casts Few /HPF Urine Granular Casts Few /HPF Urine Mucus Marked /LPF Bedside Venous pH 7.34 (7.32-7.42) Bedside Venous pCO2 46 mmHg (41-51) Bedside Venous pO2 93 mmHg (20-40) Venous Blood HCO3 25 mmol/L (24-28) POC Venous O2 Saturation (Jeanne) 97 % Bedside FiO2 27.0 Laboratory Tests Test 05/11/20 21:20 05/11/20 21:54 05/11/20 23:50 05/12/20 02:06 White Blood Count 27.4 x10^3/uL (4.0-11.0) Red Blood Count 5.29 x10^6/uL (4.30-5.70) Hemoglobin 15.9 g/dL (13.0-17.5) Hematocrit 46.3 % (39.0-53.0) Mean Corpuscular Volume 88 fL (79-100) Mean Corpuscular Hemoglobin 30 pg (25-35) Mean Corpuscular Hemoglobin Concent 34 g/dL (31-37) Red Cell Distribution Width 13.3 % (11.5-14.5) Platelet Count 263 x10^3/uL (140-400) Neutrophils (%) (Auto) 58 % (31-73) Lymphocytes (%) (Auto) 10 % (24-48) Monocytes (%) (Auto) 3 % (0-9) Eosinophils (%) (Auto) 30 % (0-3) Basophils (%) (Auto) 0 % (0-3) Neutrophils # (Auto) 15.8 x10^3/uL (1.8-7.7) Lymphocytes # (Auto) 2.6 x10^3/uL (1.0-4.8) Monocytes # (Auto) 0.7 x10^3/uL (0.0-1.1) Eosinophils # (Auto) 8.1 x10^3/uL (0.0-0.7) Basophils # (Auto) 0.1 x10^3/uL (0.0-0.2) Segmented Neutrophils % 67 % (35-66) Lymphocytes % 8 % (24-48) Eosinophils % 23 % (0-5) Basophils % 1 % (0-3) Myelocytes % 1 % (0-0) Platelet Estimate Adequate (ADEQUATE) D-Dimer (Carlene) 0.35 ug/mlFEU (0.00-0.50) Sodium Level 136 mmol/L (136-145) Potassium Level 3.5 mmol/L (3.5-5.1) Chloride Level 98 mmol/L (98-107) Carbon Dioxide Level 27 mmol/L (21-32) Anion Gap 11 (6-14) Blood Urea Nitrogen 12 mg/dL (8-26) Creatinine 0.8 mg/dL (0.7-1.3) Estimated GFR (Cockcroft-Gault) 112.0 BUN/Creatinine Ratio 15 (6-20) Glucose Level 123 mg/dL (70-99) Calcium Level 9.4 mg/dL (8.5-10.1) Total Bilirubin 1.0 mg/dL (0.2-1.0) Aspartate Amino Transf (AST/SGOT) 27 U/L (15-37) Alanine Aminotransferase (ALT/SGPT) 60 U/L (16-63) Alkaline Phosphatase 100 U/L (46-116) Creatine Kinase 284 U/L (39-308) Troponin I Quantitative < 0.017 ng/mL (0.000-0.055) TC-Pop-Z-Type Natriuretic Peptide 36 pg/mL (0-124) Total Protein 7.8 g/dL (6.4-8.2) Albumin 4.4 g/dL (3.4-5.0) Albumin/Globulin Ratio 1.3 (1.0-1.7) Influenza Type A Antigen Negative (NEGATIVE) Influenza Type B Antigen Negative (NEGATIVE) Urine Collection Type Unknown Urine Color Megan Urine Clarity Clear Urine pH 5.5 (<5.0-8.0) Urine Specific [place] 1.025 (1.000-1.030) Urine Protein Negative mg/dL (NEG-TRACE) Urine Glucose (UA) Negative mg/dL (NEG) Urine Ketones (Stick) Negative mg/dL (NEG) Urine Blood Negative (NEG) Urine Nitrite Negative (NEG) Urine Bilirubin Negative (NEG) Urine Urobilinogen Dipstick 1.0 mg/dL (0.2 mg/dL) Urine Leukocyte Esterase Negative (NEG) Urine RBC 1-2 /HPF (0-2) Urine WBC 1-4 /HPF (0-4) Urine Squamous Epithelial Cells Few /LPF Urine Amorphous Sediment Present /HPF Urine Bacteria Few /HPF (0-FEW) Urine Hyaline Casts Few /HPF Urine Granular Casts Few /HPF Urine Mucus Marked /LPF Bedside Venous pH 7.34 (7.32-7.42) Bedside Venous pCO2 46 mmHg (41-51) Bedside Venous pO2 93 mmHg (20-40) Venous Blood HCO3 25 mmol/L (24-28) POC Venous O2 Saturation (Jeanne) 97 % Bedside FiO2 27.0 Medications Active Scripts Medications Dose Route/Sig Max Daily Dose Days Date Category Venlafaxine Hcl Er (Venlafaxine Hcl) 75 Mg Cap.er.24h 1 Cap PO DAILY 05/12/20 Reported Amlodipine Besylate 10 Mg Tablet 10 Mg PO DAILY 30 08/09/18 Rx Chlorthalidone (Chlorthalidone) 25 Mg Tablet 25 Mg PO DAILY 30 08/09/18 Rx [Nicotine 21MG] 1 PATCH Patch 1 Patch TD DAILY 30 08/09/18 Rx Impression . Full consult dictated Suspect mostly acute exacerbation of COPD, undiagnosed COPD. Chest x-ray normal doubt Covid We will await SARS-CoV-2 results Once negative will rule out cardiomyopathy obtain echocardiogram AXEL SANCHEZ MD May 12, 2020 13:09
[2020-05-12] MEDS: DOXYCYCLINE HYCLATE 100 MG TABLET PO SCH ×2 (14:33→21:39)
[2020-05-12] MEDS: ASCORBIC ACID 1,000 MG TABLET PO SCH ×2 (14:33→21:39)
[2020-05-12 15:00] VITALS: BP 136/86
[2020-05-12 15:45] LABS: BARBITURATES NEG (NEG); BENZODIAZEPINES NEG (NEG); CANNABINOIDS NEG (NEG); COCAINE NEG (NEG); METHADONE NEG (NEG); OPIATES POS (NEG); PHENCYCLIDINE NEG (NEG)
[2020-05-12 15:48] LABS: AMPHETAMINE/METHAMPHETAMINE NEG (NEG)
[2020-05-12] MEDS: NICOTINE 21MG PATCH. TD SCH (17:13)
[2020-05-12 19:00] VITALS: BP 135/83
--- NOTE | 2020-05-12 19:34 | CONS ---
DATE OF CONSULTATION: 05/12/2020 ATTENDING PHYSICIAN: Dr. Joaquin Isidro. REASON FOR CONSULTATION: The patient is seen in pulmonary consultation at the request of Dr. Isidro for possible COVID-19 and shortness of air. HISTORY OF PRESENT ILLNESS: The patient is a 34-year-old that works at [employer]. He has been sick now, on and off for 2-3 weeks. He states that he gets better, then gets worse. Most of his symptoms are related to shortness of breath with exertion, cough, mostly nonproductive. The patient does smoke on a daily basis. He was recently tested with a rapid test several days ago, which was negative. He comes in and had a chest x-ray, which was normal. He is currently pending for SARS-CoV-2 testing. He denies any associated chest pain or pressure. No prior history of asthma or COPD. He presented to the Emergency Room and he was admitted. PAST MEDICAL HISTORY: Remarkable for hypertension, tobacco dependent, possible COPD, never been told that he has COPD. PAST SURGICAL HISTORY: None. SOCIAL HISTORY: He smokes on a daily basis. Occasional use of alcohol. Works at [employer]. REVIEW OF SYSTEMS: As indicated above, otherwise, a 10-point system was reviewed and negative. CONSTITUTIONAL: No fever or chills. EYES: No change in visual acuity. HENT: No nasal congestion or sore throat. PULMONARY: As indicated above. CARDIOVASCULAR: No chest pain. No pressure. GASTROINTESTINAL: No nausea, vomiting, or diarrhea. GENITOURINARY: No dysuria or frequency. MUSCULOSKELETAL: No localized muscle aches or joint pains. SKIN: No new skin rashes. NEUROLOGIC: No headaches, diplopia or blurred vision. MEDICATION LIST: Reviewed. He is currently receiving dexamethasone, nebulized treatments. PHYSICAL EXAMINATION: VITAL SIGNS: Stable. O2 saturation was greater than 92%. NECK: Jugular venous distention was not elevated. No lymphadenopathy. CHEST: Full expansion. LUNGS: Coarse breath sounds with scattered wheezing. CARDIOVASCULAR: Regular rate and rhythm with S1, S2. No S3. ABDOMEN: Soft, nontender, nondistended. EXTREMITIES: No clubbing, cyanosis or edema. NEUROLOGICAL: The patient was awake, alert, following commands. A detailed neuro exam was not performed. LABORATORY DATA: Reviewed. Serology for influenza was negative. UA was noted. Electrolytes were normal. Arterial blood gas; pH of 7.34, PaCO2 of 46, pO2 of 93. White count is elevated at 27,000. D-dimer was normal. IMPRESSION: 1. Acute exacerbation of chronic obstructive pulmonary disease. 2. Progressive dyspnea secondary to above. 3. Obesity. 4. Tobacco dependent. 5. Leukocytosis, suspect related to stress, reactive/stress. 6. Hypertension. PLAN: 1. Recommend to continue treatment for acute exacerbation of COPD with steroids and antibiotics. We will add doxycycline. 2. Follow up on SARS-CoV-2. 3. Echocardiogram once SARS-CoV-2 is reported negative. 4. The patient instructed on the importance of discontinuing tobacco use. 5. Discharge home on scheduled bronchodilators. 6. I do appreciate the privilege in sharing in the patient's care. AXEL SANCHEZ MD DR: DOMINIK/solomon JOB#: [id number] / [id number]
[2020-05-12 23:05] VITALS: BP 143/84
[2020-05-13] MEDS ORDERED: PIP/TAZO PER PHARMACY MC PRN (02:30)
--- NOTE | 2020-05-13 02:39 | NUR ---
Dr. Helms notified of positive severe sepsis screen orders for zosyn and ID received, ICU paged, order placed for Lactic acid, and blood cultures already drawn.
[2020-05-13] MEDS: PIPERACILLIN/TAZOBACTAM 3.375 GM in IV NORMAL SALINE 50ML 50 ML IV SCH ×3 (02:53→12:39)
[2020-05-13 03:17] LABS: CALCIUM 9.1 mg/dL (8.5-10.1); CREATININE 0.9 mg/dL (0.7-1.3); GFR 97.8; MAGNESIUM 2.2 mg/dL (1.8-2.4); POTASSIUM 3.4 mmol/L (3.5-5.1)
[2020-05-13 03:45] VITALS: BP 136/92
[2020-05-13 03:57] LABS: BASO % 0 % (0-3); EOS # 0.5 x10^3/uL (0.0-0.7); EOS % 2 % (0-3); HEMOGLOBIN 16.1 g/dL (13.0-17.5); LYMPH # 2.5 x10^3/uL (1.0-4.8); LYMPH % 11 % (24-48); MEAN CORPUSCULAR HEMOGLOBIN 30 pg (25-35); MEAN CORPUSCULAR HGB CONC 34 g/dL (31-37); MEAN CORPUSCULAR VOLUME 87 fL (79-100); MONO # 0.9 x10^3/uL (0.0-1.1); MONO % 4 % (0-9); NEUT # 19.5 x10^3/uL (1.8-7.7); NEUT % 83 % (31-73); PLATELET COUNT 266 x10^3/uL (140-400); RED BLOOD COUNT 5.37 x10^6/uL (4.30-5.70); RED CELL DISTRIBUTION WIDTH 13.2 % (11.5-14.5); WHITE BLOOD COUNT 23.4 x10^3/uL (4.0-11.0)
[2020-05-13 07:00] VITALS: BP 113/71
[2020-05-13] MEDS: PANTOPRAZOLE 40 MG TABLET.DR. PO SCH (07:30)
[2020-05-13] MEDS: DOXYCYCLINE HYCLATE 100 MG TABLET PO SCH ×2 (09:00→21:05)
[2020-05-13] MEDS: ASCORBIC ACID 1,000 MG TABLET PO SCH ×3 (09:00→21:05)
--- NOTE | 2020-05-13 09:47 | CONS ---
DATE OF CONSULTATION: 05/13/2020 Kevon Cloud, nurse practitioner, dictating for Eren Astorga MD, Infectious Disease. REFERRING PHYSICIAN: Oumar Helms MD REASON FOR CONSULTATION: Sepsis. HISTORY OF PRESENT ILLNESS: This patient is a 34-year-old male with a medical history of hypertension, who over the last month or so has not been feeling well. He tells me over the last 3 days, he has experienced worsening shortness of air, chest congestion, cough, headache, fever, chills, sweats, loss of appetite, generalized weakness and confusion. He is on a nonrebreather for hypoxia. COVID results are pending. He has been started on dexamethasone, Zosyn and doxycycline. PAST MEDICAL HISTORY: Hypertension, anxiety, tobaccoism. PAST SURGICAL HISTORY: No significant past surgical history. FAMILY HISTORY: The patient does not know his family history. SOCIAL HISTORY: He is and lives at home. He is an everyday smoker. He drinks alcohol occasionally. He works at [employer]. He does not have any pets and denies recent traveling. ALLERGIES: No known drug allergies. MEDICATIONS: Dexamethasone, doxycycline and Zosyn. REVIEW OF SYSTEMS: Per HPI, otherwise all other review of systems are negative. PHYSICAL EXAMINATION: VITAL SIGNS: Afebrile, blood pressure 113/65, heart rate 97, respiratory rate 22, pulse oximetry 96% on nonrebreather. GENERAL: The patient is propped up in bed, awake, ill. HEENT: Pupils equally round, reactive. Normal conjunctivae. Oropharynx pink and moist. No lesions seen. NECK: Supple. No nuchal rigidity. LUNGS: Clear to auscultation. No accessory muscle use. HEART: Normal S1 and S2 regular. ABDOMEN: Obese, soft, nontender with bowel sounds present. EXTREMITIES: No gross edema or cyanosis. SKIN: Warm to touch. No signs of rash. NEUROLOGIC: Alert, oriented x 3. Moves all extremities. LINES: Peripheral IV looks okay. LABORATORY DATA: Unavailable as [employer] is down. reviewed ua neg IMAGING: Unavailable as [employer] is down. CXR reviewed IMPRESSION: 1. COVID viral pneumonia suspected. 2. Sepsis. 3. Acute respiratory failure.,Bronchitis 4. Hypertension. 5.Leucocytosis ,eosinophilia, leucopenia 6. Smoking RECOMMENDATIONS: 1. Continue dexamethasone, Zosyn and doxycycline. 2. Follow up lab results, imaging and cultures. 3. Maintain aspiration precautions. 4. Airborne precautions for now. 5. Repeat COVID 19 6. Encouraged to quit smoking 7. F/U labs in am Thank you, Dr. Helms, for asking us to participate in this patient's care. Should you have further questions or concerns, please call. Pt seen and examined, A/P coformulated with TELEMEDICINE PHYSICIAN. EREN ASTORGA MD DR: GRACIELA/solomon JOB#: [id number] / [id number] KAILEE
[2020-05-13] MEDS: IPRATROPIUM/ALBUTEROL 20/100mcg/INH INHALER. INH SCH ×4 (10:38→21:05)
[2020-05-13] MEDS: NICOTINE 21MG PATCH. TD SCH (10:38)
[2020-05-13] MEDS: DEXAMETHASONE SOD PHOS 4 MG/ML VIAL IVP SCH (10:38)
[2020-05-13] MEDS: AMINO AC 3%/ELECTROLYTE/GLYCER 1,000 ML IV SCH ×2 (10:43→21:10)
[2020-05-13 11:00] VITALS: BP 132/74
[2020-05-13] MEDS: THIAMINE 100 MG TABLET. PO SCH (12:39)
--- NOTE | 2020-05-13 13:23 | PDOC ---
[facility] PROGRESS NOTE Date of Service DOS: DATE: 05/13/20 TIME: 13:13 Chief Complaint Chief Complaint A/P: Acute hypoxic respiratory failure - likely RB ILD with acute bronchitis/copd component. Negative COVID 19 Accelerated HTN - dangerously high DBP, admitted for better control of this hypertensive emergency.cont low dose amlodipine. Negative 2/2 HTN w/u with normal renal dopplers, renin/safia pending. He notes having elevated BP as of 3 years ago. Smoking cessation is absolutely necessary Obesity - has been losing weight intentionally outpatient over the past 2 years. Will check A1c outpatient Smoker - 1.5ppd, offered nicotine patch. 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 CXR with no acute findings, but requiring high flow O2 15l/min. Admitted for further care. Afebrile overnight. Down to 12 L nasal cannula O2 eating. After started on Combivent inhaler is breathing is significantly improving coughing up thick sputum. COVID-19 testing returned negative. Vitals/I&O Vitals/I&O: Vital Signs Date Time Temp Pulse Resp B/P (MAP) Pulse Ox O2 Delivery O2 Flow Rate FiO2 05/13/20 11:00 97.9 92 22 132/74 (93) 95 NonRebreather Mask 15.0 97.9 I & O 05/12/20 05/12/20 05/13/20 15:00 23:00 07:00 Intake Total 480 ml 240 ml 120 ml Output Total 250 ml Balance 230 ml 240 ml 120 ml Physical Exam General: Alert, Oriented X3, Cooperative, mild distress Heart: Regular rate Lungs: Wheezing Abdomen: Normal bowel sounds, Soft Extremities: No clubbing, No cyanosis Skin: No rashes, No breakdown Labs Labs: Laboratory Tests Test 05/12/20 14:04 2/15/21 02:35 Urine Opiates Screen Pos (NEG) Urine Methadone Screen Neg (NEG) Urine Barbiturates Neg (NEG) Urine Phencyclidine Screen Neg (NEG) Urine Amphetamine/Methamphetamine Neg (NEG) Urine Benzodiazepines Screen Neg (NEG) Urine Cocaine Screen Neg (NEG) Urine Cannabinoids Screen Neg (NEG) Urine Ethyl Alcohol Neg (NEG) White Blood Count 23.4 x10^3/uL (4.0-11.0) Red Blood Count 5.37 x10^6/uL (4.30-5.70) Hemoglobin 16.1 g/dL (13.0-17.5) Hematocrit 47.0 % (39.0-53.0) Mean Corpuscular Volume 87 fL (79-100) Mean Corpuscular Hemoglobin 30 pg (25-35) Mean Corpuscular Hemoglobin Concent 34 g/dL (31-37) Red Cell Distribution Width 13.2 % (11.5-14.5) Platelet Count 266 x10^3/uL (140-400) Neutrophils (%) (Auto) 83 % (31-73) Lymphocytes (%) (Auto) 11 % (24-48) Monocytes (%) (Auto) 4 % (0-9) Eosinophils (%) (Auto) 2 % (0-3) Basophils (%) (Auto) 0 % (0-3) Neutrophils # (Auto) 19.5 x10^3/uL (1.8-7.7) Lymphocytes # (Auto) 2.5 x10^3/uL (1.0-4.8) Monocytes # (Auto) 0.9 x10^3/uL (0.0-1.1) Eosinophils # (Auto) 0.5 x10^3/uL (0.0-0.7) Basophils # (Auto) 0.0 x10^3/uL (0.0-0.2) Sodium Level 137 mmol/L (136-145) Potassium Level 3.4 mmol/L (3.5-5.1) Chloride Level 101 mmol/L (98-107) Carbon Dioxide Level 28 mmol/L (21-32) Anion Gap 8 (6-14) Blood Urea Nitrogen 11 mg/dL (8-26) Creatinine 0.9 mg/dL (0.7-1.3) Estimated GFR (Cockcroft-Gault) 97.8 Glucose Level 116 mg/dL (70-99) Lactic Acid Level 1.1 mmol/L (0.4-2.0) Calcium Level 9.1 mg/dL (8.5-10.1) Phosphorus Level 3.0 mg/dL (2.6-4.7) Magnesium Level 2.2 mg/dL (1.8-2.4) Assessment and Plan Assessmemt and Plan Problems Medical Problems: (1) COPD (chronic obstructive pulmonary disease) Status: Acute Comment Review of Relevant I have reviewed the following items trent (where applicable) has been applied. Medications: Current Medications Medications (Trade) Dose Ordered Sig/Jose Route PRN Reason Start Time Stop Time Status Last Admin Dose Admin Ascorbic Acid (Vitamin C) 3,000 mg TID PO 05/12/20 14:00 05/13/20 09:00 Doxycycline Hyclate (Vibra-Tab) 100 mg BID PO 05/12/20 13:30 05/13/20 09:00 Nicotine (Nicoderm Cq 21mg) 1 patch DAILY TD 05/12/20 17:00 05/13/20 10:38 Piperacillin Sod/ Tazobactam Sod 3.375 gm/Sodium Chloride 50 ml @ 100 mls/hr Q6HRS IV 05/13/20 03:00 05/13/20 12:39 Amino Acids/ Glycerin/ Electrolytes 1,000 ml @ 80 mls/hr [id number] IV 05/13/20 09:15 05/13/20 10:43 Justifications for Admission Other Justification Respiratory failure ZHEN MEYER MD May 13, 2020 13:23
[2020-05-13] MEDS ORDERED: BUDESONIDE 0.5 MG/2 ML NEBU. NEB ONE (13:30)
--- NOTE | 2020-05-13 13:38 | PDOC ---
PULMONARY PROGRESS NOTES DATE: 05/13/20 TIME: 13:37 Subjective Patient feels better, less short of air, less wheezing. No chest pain no pressure Vitals Vital Signs Date Time Temp Pulse Resp B/P (MAP) Pulse Ox O2 Delivery O2 Flow Rate FiO2 05/13/20 11:00 97.9 92 22 132/74 (93) 95 NonRebreather Mask 15.0 97.9 ROS: No Nausea, No Chest Pain, No Abdominal Pain, No Increase Cough General: Alert Lungs: Wheezing Cardiovascular: S1, S2 Abdomen: Soft Neuro Exam: Alert Extremities: No Edema Skin: Warm Labs Laboratory Tests Test 05/11/20 21:20 05/11/20 21:54 05/11/20 23:50 05/12/20 02:06 White Blood Count 27.4 x10^3/uL (4.0-11.0) Red Blood Count 5.29 x10^6/uL (4.30-5.70) Hemoglobin 15.9 g/dL (13.0-17.5) Hematocrit 46.3 % (39.0-53.0) Mean Corpuscular Volume 88 fL (79-100) Mean Corpuscular Hemoglobin 30 pg (25-35) Mean Corpuscular Hemoglobin Concent 34 g/dL (31-37) Red Cell Distribution Width 13.3 % (11.5-14.5) Platelet Count 263 x10^3/uL (140-400) Neutrophils (%) (Auto) 58 % (31-73) Lymphocytes (%) (Auto) 10 % (24-48) Monocytes (%) (Auto) 3 % (0-9) Eosinophils (%) (Auto) 30 % (0-3) Basophils (%) (Auto) 0 % (0-3) Neutrophils # (Auto) 15.8 x10^3/uL (1.8-7.7) Lymphocytes # (Auto) 2.6 x10^3/uL (1.0-4.8) Monocytes # (Auto) 0.7 x10^3/uL (0.0-1.1) Eosinophils # (Auto) 8.1 x10^3/uL (0.0-0.7) Basophils # (Auto) 0.1 x10^3/uL (0.0-0.2) Segmented Neutrophils % 67 % (35-66) Lymphocytes % 8 % (24-48) Eosinophils % 23 % (0-5) Basophils % 1 % (0-3) Myelocytes % 1 % (0-0) Platelet Estimate Adequate (ADEQUATE) D-Dimer (Carlene) 0.35 ug/mlFEU (0.00-0.50) Sodium Level 136 mmol/L (136-145) Potassium Level 3.5 mmol/L (3.5-5.1) Chloride Level 98 mmol/L (98-107) Carbon Dioxide Level 27 mmol/L (21-32) Anion Gap 11 (6-14) Blood Urea Nitrogen 12 mg/dL (8-26) Creatinine 0.8 mg/dL (0.7-1.3) Estimated GFR (Cockcroft-Gault) 112.0 BUN/Creatinine Ratio 15 (6-20) Glucose Level 123 mg/dL (70-99) Calcium Level 9.4 mg/dL (8.5-10.1) Total Bilirubin 1.0 mg/dL (0.2-1.0) Aspartate Amino Transf (AST/SGOT) 27 U/L (15-37) Alanine Aminotransferase (ALT/SGPT) 60 U/L (16-63) Alkaline Phosphatase 100 U/L (46-116) Creatine Kinase 284 U/L (39-308) Troponin I Quantitative < 0.017 ng/mL (0.000-0.055) OD-Drb-T-Type Natriuretic Peptide 36 pg/mL (0-124) Total Protein 7.8 g/dL (6.4-8.2) Albumin 4.4 g/dL (3.4-5.0) Albumin/Globulin Ratio 1.3 (1.0-1.7) Coronavirus (PCR) Not detected (Not Detected) Influenza Type A Antigen Negative (NEGATIVE) Influenza Type B Antigen Negative (NEGATIVE) Urine Collection Type Unknown Urine Color Megan Urine Clarity Clear Urine pH 5.5 (<5.0-8.0) Urine Specific [place] 1.025 (1.000-1.030) Urine Protein Negative mg/dL (NEG-TRACE) Urine Glucose (UA) Negative mg/dL (NEG) Urine Ketones (Stick) Negative mg/dL (NEG) Urine Blood Negative (NEG) Urine Nitrite Negative (NEG) Urine Bilirubin Negative (NEG) Urine Urobilinogen Dipstick 1.0 mg/dL (0.2 mg/dL) Urine Leukocyte Esterase Negative (NEG) Urine RBC 1-2 /HPF (0-2) Urine WBC 1-4 /HPF (0-4) Urine Squamous Epithelial Cells Few /LPF Urine Amorphous Sediment Present /HPF Urine Bacteria Few /HPF (0-FEW) Urine Hyaline Casts Few /HPF Urine Granular Casts Few /HPF Urine Mucus Marked /LPF Bedside Venous pH 7.34 (7.32-7.42) Bedside Venous pCO2 46 mmHg (41-51) Bedside Venous pO2 93 mmHg (20-40) Venous Blood HCO3 25 mmol/L (24-28) POC Venous O2 Saturation (Jeanne) 97 % Bedside FiO2 27.0 Test 05/12/20 14:04 05/13/20 02:35 Urine Opiates Screen Pos (NEG) Urine Methadone Screen Neg (NEG) Urine Barbiturates Neg (NEG) Urine Phencyclidine Screen Neg (NEG) Urine Amphetamine/Methamphetamine Neg (NEG) Urine Benzodiazepines Screen Neg (NEG) Urine Cocaine Screen Neg (NEG) Urine Cannabinoids Screen Neg (NEG) Urine Ethyl Alcohol Neg (NEG) White Blood Count 23.4 x10^3/uL (4.0-11.0) Red Blood Count 5.37 x10^6/uL (4.30-5.70) Hemoglobin 16.1 g/dL (13.0-17.5) Hematocrit 47.0 % (39.0-53.0) Mean Corpuscular Volume 87 fL (79-100) Mean Corpuscular Hemoglobin 30 pg (25-35) Mean Corpuscular Hemoglobin Concent 34 g/dL (31-37) Red Cell Distribution Width 13.2 % (11.5-14.5) Platelet Count 266 x10^3/uL (140-400) Neutrophils (%) (Auto) 83 % (31-73) Lymphocytes (%) (Auto) 11 % (24-48) Monocytes (%) (Auto) 4 % (0-9) Eosinophils (%) (Auto) 2 % (0-3) Basophils (%) (Auto) 0 % (0-3) Neutrophils # (Auto) 19.5 x10^3/uL (1.8-7.7) Lymphocytes # (Auto) 2.5 x10^3/uL (1.0-4.8) Monocytes # (Auto) 0.9 x10^3/uL (0.0-1.1) Eosinophils # (Auto) 0.5 x10^3/uL (0.0-0.7) Basophils # (Auto) 0.0 x10^3/uL (0.0-0.2) Sodium Level 137 mmol/L (136-145) Potassium Level 3.4 mmol/L (3.5-5.1) Chloride Level 101 mmol/L (98-107) Carbon Dioxide Level 28 mmol/L (21-32) Anion Gap 8 (6-14) Blood Urea Nitrogen 11 mg/dL (8-26) Creatinine 0.9 mg/dL (0.7-1.3) Estimated GFR (Cockcroft-Gault) 97.8 Glucose Level 116 mg/dL (70-99) Lactic Acid Level 1.1 mmol/L (0.4-2.0) Calcium Level 9.1 mg/dL (8.5-10.1) Phosphorus Level 3.0 mg/dL (2.6-4.7) Magnesium Level 2.2 mg/dL (1.8-2.4) Laboratory Tests Test 05/12/20 14:04 05/13/20 02:35 Urine Opiates Screen Pos (NEG) Urine Methadone Screen Neg (NEG) Urine Barbiturates Neg (NEG) Urine Phencyclidine Screen Neg (NEG) Urine Amphetamine/Methamphetamine Neg (NEG) Urine Benzodiazepines Screen Neg (NEG) Urine Cocaine Screen Neg (NEG) Urine Cannabinoids Screen Neg (NEG) Urine Ethyl Alcohol Neg (NEG) White Blood Count 23.4 x10^3/uL (4.0-11.0) Red Blood Count 5.37 x10^6/uL (4.30-5.70) Hemoglobin 16.1 g/dL (13.0-17.5) Hematocrit 47.0 % (39.0-53.0) Mean Corpuscular Volume 87 fL (79-100) Mean Corpuscular Hemoglobin 30 pg (25-35) Mean Corpuscular Hemoglobin Concent 34 g/dL (31-37) Red Cell Distribution Width 13.2 % (11.5-14.5) Platelet Count 266 x10^3/uL (140-400) Neutrophils (%) (Auto) 83 % (31-73) Lymphocytes (%) (Auto) 11 % (24-48) Monocytes (%) (Auto) 4 % (0-9) Eosinophils (%) (Auto) 2 % (0-3) Basophils (%) (Auto) 0 % (0-3) Neutrophils # (Auto) 19.5 x10^3/uL (1.8-7.7) Lymphocytes # (Auto) 2.5 x10^3/uL (1.0-4.8) Monocytes # (Auto) 0.9 x10^3/uL (0.0-1.1) Eosinophils # (Auto) 0.5 x10^3/uL (0.0-0.7) Basophils # (Auto) 0.0 x10^3/uL (0.0-0.2) Sodium Level 137 mmol/L (136-145) Potassium Level 3.4 mmol/L (3.5-5.1) Chloride Level 101 mmol/L (98-107) Carbon Dioxide Level 28 mmol/L (21-32) Anion Gap 8 (6-14) Blood Urea Nitrogen 11 mg/dL (8-26) Creatinine 0.9 mg/dL (0.7-1.3) Estimated GFR (Cockcroft-Gault) 97.8 Glucose Level 116 mg/dL (70-99) Lactic Acid Level 1.1 mmol/L (0.4-2.0) Calcium Level 9.1 mg/dL (8.5-10.1) Phosphorus Level 3.0 mg/dL (2.6-4.7) Magnesium Level 2.2 mg/dL (1.8-2.4) Medications Active Scripts Medications Dose Route/Sig Max Daily Dose Days Date Category Venlafaxine Hcl Er (Venlafaxine Hcl) 75 Mg Cap.er.24h 1 Cap PO DAILY 05/12/20 Reported Amlodipine Besylate 10 Mg Tablet 10 Mg PO DAILY 30 08/09/18 Rx Chlorthalidone (Chlorthalidone) 25 Mg Tablet 25 Mg PO DAILY 30 08/09/18 Rx [Nicotine 21MG] 1 PATCH Patch 1 Patch TD DAILY 30 08/09/18 Rx Impression . IMPRESSION: 1. Acute exacerbation of chronic obstructive pulmonary disease. 2. Progressive dyspnea secondary to above. 3. Obesity. 4. Tobacco dependent. 5. Leukocytosis, suspect related to stress, reactive/stress. 6. Hypertension. 7. SARS Covid 2 - negative Plan . Discussed with Dr. Lucero continue steroids Continue treatment for acute exacerbation of COPD Echocardiogram when able to do so ID repeated SARS Covid 2 Discussed with patient, importance of discontinue tobacco use. AXEL SANCHEZ MD May 13, 2020 13:38
[2020-05-13] MEDS: amLODIPine BESYLATE 5 MG TABLET PO SCH (14:43)
[2020-05-13] MEDS: IPRATRPIUM/ALBUTEROL 0.5/2.5MG 3 ML NEBU. NEB SCH ×2 (15:10→19:06)
[2020-05-13 15:42] VITALS: BP 136/77
--- NOTE | 2020-05-13 17:00 | NUR ---
SW following for discharge planning. Spoke with RN and reviewed chart. Pt COVID pending, nonrebreather, IV Zosyn. SW following.
[2020-05-13 19:00] VITALS: BP 125/80
[2020-05-13] MEDS: BUDESONIDE 0.5 MG/2 ML NEBU. NEB SCH (19:06)
[2020-05-13] MEDS ORDERED: diphenhydrAMINE HCL 25 MG CAPSULE PO PRN (19:15)
[2020-05-13] MEDS: ZOLPIDEM 5 MG TABLET. PO PRN (21:05)
[2020-05-13] MEDS: LACTOBACILLUS RHAMNOSUS GG 1 CAPSULE. PO SCH (21:05)
[2020-05-13 22:48] VITALS: BP 120/81
[2020-05-14 02:45] VITALS: BP 131/80
[2020-05-14 05:17] LABS: BASO # 0.1 x10^3/uL (0.0-0.2); BASO % 0 % (0-3); EOS # 0.5 x10^3/uL (0.0-0.7); EOS % 3 % (0-3); HEMATOCRIT 46.1 % (39.0-53.0); HEMOGLOBIN 15.9 g/dL (13.0-17.5); LYMPH # 3.5 x10^3/uL (1.0-4.8); LYMPH % 20 % (24-48); MEAN CORPUSCULAR HEMOGLOBIN 30 pg (25-35); MEAN CORPUSCULAR HGB CONC 34 g/dL (31-37); MEAN CORPUSCULAR VOLUME 88 fL (79-100); MONO # 0.9 x10^3/uL (0.0-1.1); MONO % 5 % (0-9); NEUT # 12.9 x10^3/uL (1.8-7.7); NEUT % 72 % (31-73); PLATELET COUNT 263 x10^3/uL (140-400); RED BLOOD COUNT 5.21 x10^6/uL (4.30-5.70); RED CELL DISTRIBUTION WIDTH 13.5 % (11.5-14.5); WHITE BLOOD COUNT 17.9 x10^3/uL (4.0-11.0)
[2020-05-14] MEDS: PANTOPRAZOLE 40 MG TABLET.DR. PO SCH (07:30)
[2020-05-14] MEDS: IPRATRPIUM/ALBUTEROL 0.5/2.5MG 3 ML NEBU. NEB SCH ×4 (08:00→20:00)
[2020-05-14] MEDS: IPRATROPIUM/ALBUTEROL 20/100mcg/INH INHALER. INH SCH ×4 (08:00→20:00)
[2020-05-14] MEDS: BUDESONIDE 0.5 MG/2 ML NEBU. NEB SCH ×2 (08:00→20:00)
[2020-05-14] MEDS: ASCORBIC ACID 1,000 MG TABLET PO SCH ×3 (09:00→19:41)
[2020-05-14] MEDS: DEXAMETHASONE SOD PHOS 4 MG/ML VIAL IVP SCH (09:00)
[2020-05-14] MEDS ORDERED: NICOTINE 21 MG TD SCH (09:00)
[2020-05-14] MEDS: LACTOBACILLUS RHAMNOSUS GG 1 CAPSULE. PO SCH ×2 (09:00→19:42)
[2020-05-14] MEDS: NICOTINE 21MG PATCH. TD SCH (09:00)
[2020-05-14] MEDS: THIAMINE 100 MG TABLET. PO SCH (09:00)
[2020-05-14] MEDS: DOXYCYCLINE HYCLATE 100 MG TABLET PO SCH ×2 (09:00→19:42)
[2020-05-14] MEDS: amLODIPine BESYLATE 5 MG TABLET PO SCH (09:00)
[2020-05-14] MEDS: AMINO AC 3%/ELECTROLYTE/GLYCER 1,000 ML IV SCH ×2 (10:15→22:45)
[2020-05-14 11:13] LABS: % BANDS 3 % (0-9); % BASOS 1 % (0-3); % EOS 4 % (0-5); % LYMPHS 20 % (24-48); % METAS 1 % (0-0); % MONOS 5 % (0-10); % SEGS 66 % (35-66)
[2020-05-14 11:14] LABS: PLT ESTIMATE ADEQUATE (ADEQUATE)
--- NOTE | 2020-05-14 11:20 | PDOC ---
PULMONARY PROGRESS NOTES DATE: 05/14/20 TIME: 11:18 Subjective Patient still short of air,receiving 8 L of oxygen no chest pain no pressure Vitals Vital Signs Date Time Temp Pulse Resp B/P (MAP) Pulse Ox O2 Delivery O2 Flow Rate FiO2 05/14/20 02:45 98.2 90 17 131/80 (97) 94 Room Air 9.0 98.2 ROS: No Nausea, No Chest Pain, No Abdominal Pain, No Increase Cough General: Alert Lungs: Wheezing Cardiovascular: S1, S2 Abdomen: Soft Neuro Exam: Alert Extremities: No Edema Skin: Warm Labs Laboratory Tests Test 05/12/20 14:04 05/13/20 02:35 05/14/20 04:50 Urine Opiates Screen Pos (NEG) Urine Methadone Screen Neg (NEG) Urine Barbiturates Neg (NEG) Urine Phencyclidine Screen Neg (NEG) Urine Amphetamine/Methamphetamine Neg (NEG) Urine Benzodiazepines Screen Neg (NEG) Urine Cocaine Screen Neg (NEG) Urine Cannabinoids Screen Neg (NEG) Urine Ethyl Alcohol Neg (NEG) White Blood Count 23.4 x10^3/uL (4.0-11.0) 17.9 x10^3/uL (4.0-11.0) Red Blood Count 5.37 x10^6/uL (4.30-5.70) 5.21 x10^6/uL (4.30-5.70) Hemoglobin 16.1 g/dL (13.0-17.5) 15.9 g/dL (13.0-17.5) Hematocrit 47.0 % (39.0-53.0) 46.1 % (39.0-53.0) Mean Corpuscular Volume 87 fL (79-100) 88 fL (79-100) Mean Corpuscular Hemoglobin 30 pg (25-35) 30 pg (25-35) Mean Corpuscular Hemoglobin Concent 34 g/dL (31-37) 34 g/dL (31-37) Red Cell Distribution Width 13.2 % (11.5-14.5) 13.5 % (11.5-14.5) Platelet Count 266 x10^3/uL (140-400) 263 x10^3/uL (140-400) Neutrophils (%) (Auto) 83 % (31-73) 72 % (31-73) Lymphocytes (%) (Auto) 11 % (24-48) 20 % (24-48) Monocytes (%) (Auto) 4 % (0-9) 5 % (0-9) Eosinophils (%) (Auto) 2 % (0-3) 3 % (0-3) Basophils (%) (Auto) 0 % (0-3) 0 % (0-3) Neutrophils # (Auto) 19.5 x10^3/uL (1.8-7.7) 12.9 x10^3/uL (1.8-7.7) Lymphocytes # (Auto) 2.5 x10^3/uL (1.0-4.8) 3.5 x10^3/uL (1.0-4.8) Monocytes # (Auto) 0.9 x10^3/uL (0.0-1.1) 0.9 x10^3/uL (0.0-1.1) Eosinophils # (Auto) 0.5 x10^3/uL (0.0-0.7) 0.5 x10^3/uL (0.0-0.7) Basophils # (Auto) 0.0 x10^3/uL (0.0-0.2) 0.1 x10^3/uL (0.0-0.2) Sodium Level 137 mmol/L (136-145) Potassium Level 3.4 mmol/L (3.5-5.1) Chloride Level 101 mmol/L (98-107) Carbon Dioxide Level 28 mmol/L (21-32) Anion Gap 8 (6-14) Blood Urea Nitrogen 11 mg/dL (8-26) Creatinine 0.9 mg/dL (0.7-1.3) Estimated GFR (Cockcroft-Gault) 97.8 Glucose Level 116 mg/dL (70-99) Lactic Acid Level 1.1 mmol/L (0.4-2.0) Calcium Level 9.1 mg/dL (8.5-10.1) Phosphorus Level 3.0 mg/dL (2.6-4.7) Magnesium Level 2.2 mg/dL (1.8-2.4) Segmented Neutrophils % 66 % (35-66) Band Neutrophils % 3 % (0-9) Lymphocytes % 20 % (24-48) Monocytes % 5 % (0-10) Eosinophils % 4 % (0-5) Basophils % 1 % (0-3) Metamyelocytes % 1 % (0-0) Platelet Estimate Adequate (ADEQUATE) Laboratory Tests Test 05/14/20 04:50 White Blood Count 17.9 x10^3/uL (4.0-11.0) Red Blood Count 5.21 x10^6/uL (4.30-5.70) Hemoglobin 15.9 g/dL (13.0-17.5) Hematocrit 46.1 % (39.0-53.0) Mean Corpuscular Volume 88 fL (79-100) Mean Corpuscular Hemoglobin 30 pg (25-35) Mean Corpuscular Hemoglobin Concent 34 g/dL (31-37) Red Cell Distribution Width 13.5 % (11.5-14.5) Platelet Count 263 x10^3/uL (140-400) Neutrophils (%) (Auto) 72 % (31-73) Lymphocytes (%) (Auto) 20 % (24-48) Monocytes (%) (Auto) 5 % (0-9) Eosinophils (%) (Auto) 3 % (0-3) Basophils (%) (Auto) 0 % (0-3) Neutrophils # (Auto) 12.9 x10^3/uL (1.8-7.7) Lymphocytes # (Auto) 3.5 x10^3/uL (1.0-4.8) Monocytes # (Auto) 0.9 x10^3/uL (0.0-1.1) Eosinophils # (Auto) 0.5 x10^3/uL (0.0-0.7) Basophils # (Auto) 0.1 x10^3/uL (0.0-0.2) Segmented Neutrophils % 66 % (35-66) Band Neutrophils % 3 % (0-9) Lymphocytes % 20 % (24-48) Monocytes % 5 % (0-10) Eosinophils % 4 % (0-5) Basophils % 1 % (0-3) Metamyelocytes % 1 % (0-0) Platelet Estimate Adequate (ADEQUATE) Medications Active Scripts Medications Dose Route/Sig Max Daily Dose Days Date Category Venlafaxine Hcl Er (Venlafaxine Hcl) 75 Mg Cap.er.24h 1 Cap PO DAILY 05/12/20 Reported Amlodipine Besylate 10 Mg Tablet 10 Mg PO DAILY 30 08/09/18 Rx Chlorthalidone (Chlorthalidone) 25 Mg Tablet 25 Mg PO DAILY 30 08/09/18 Rx [Nicotine 21MG] 1 PATCH Patch 1 Patch TD DAILY 30 08/09/18 Rx Impression . IMPRESSION: 1. Acute exacerbation of chronic obstructive pulmonary disease. 2. Progressive dyspnea secondary to above. 3. Obesity. 4. Tobacco dependent. 5. Leukocytosis, suspect related to stress, reactive/stress. 6. Hypertension. 7. SARS Covid 2 - negative Plan . We will continue the same. Discussed with Dr. Lucero continue steroids Continue treatment for acute exacerbation of COPD Echocardiogram when able to do so ID repeated SARS Covid 2 Discussed with patient, importance of discontinue tobacco use. AXEL SANCHEZ MD May 14, 2020 11:20
--- NOTE | 2020-05-14 13:07 | PDOC ---
Infectious Disease Note Subjective: Subjective Patient is feeling some better over-all, but still tired and weak. Breathing is less labored, O2 down to 8 L. Fever and body aches are better Sang N/V/D/rash ROS: ROS as mentioned above Vital Signs: Vital Signs Vital Signs Date Time Temp Pulse Resp B/P (MAP) Pulse Ox O2 Delivery O2 Flow Rate FiO2 05/14/20 02:45 98.2 90 17 131/80 (97) 94 Room Air 9.0 98.2 Physical Exam: PHYSICAL EXAM GENERAL: In bed, awake, tired appearance HEENT: Pupils equally round, reactive. Normal conjunctivae. Oropharynx pink and moist. No lesions seen. NECK: Supple. No nuchal rigidity. LUNGS: Clear to auscultation. No accessory muscle use. HEART: Normal S1 and S2 regular. ABDOMEN: Obese, soft, nontender with bowel sounds present. EXTREMITIES: No gross edema or cyanosis. SKIN: Warm to touch. No signs of rash. NEUROLOGIC: Alert, oriented x 3. Moves all extremities. Peripheral IV looks okay. Medications: Inpatient Meds: Medications reviewed. Labs: Lab Laboratory Tests Test 05/14/20 04:50 White Blood Count 17.9 x10^3/uL (4.0-11.0) Red Blood Count 5.21 x10^6/uL (4.30-5.70) Hemoglobin 15.9 g/dL (13.0-17.5) Hematocrit 46.1 % (39.0-53.0) Mean Corpuscular Volume 88 fL (79-100) Mean Corpuscular Hemoglobin 30 pg (25-35) Mean Corpuscular Hemoglobin Concent 34 g/dL (31-37) Red Cell Distribution Width 13.5 % (11.5-14.5) Platelet Count 263 x10^3/uL (140-400) Neutrophils (%) (Auto) 72 % (31-73) Lymphocytes (%) (Auto) 20 % (24-48) Monocytes (%) (Auto) 5 % (0-9) Eosinophils (%) (Auto) 3 % (0-3) Basophils (%) (Auto) 0 % (0-3) Neutrophils # (Auto) 12.9 x10^3/uL (1.8-7.7) Lymphocytes # (Auto) 3.5 x10^3/uL (1.0-4.8) Monocytes # (Auto) 0.9 x10^3/uL (0.0-1.1) Eosinophils # (Auto) 0.5 x10^3/uL (0.0-0.7) Basophils # (Auto) 0.1 x10^3/uL (0.0-0.2) Segmented Neutrophils % 66 % (35-66) Band Neutrophils % 3 % (0-9) Lymphocytes % 20 % (24-48) Monocytes % 5 % (0-10) Eosinophils % 4 % (0-5) Basophils % 1 % (0-3) Metamyelocytes % 1 % (0-0) Platelet Estimate Adequate (ADEQUATE) Objective: Assessment: COVID viral pneumonia suspected. neg 05/11. Sepsis. Acute respiratory failure.,Bronchitis Hypertension. Leucocytosis ,eosinophilia, lymphopenia, improved Smoking Plan: Plan of Care Continue dexamethasone and doxycycline. restart Zosyn Monitor labs/temp F/u BC, so far no growth Maintain aspiration precautions. Repeat COVID 19 negative Encouraged to quit smoking Airborne precautions for now. GABI ASTORGA MD May 14, 2020 13:07
[2020-05-14] MEDS: PIPERACILLIN/TAZOBACTAM 3.375 GM in IV NORMAL SALINE 50ML 50 ML IV SCH ×2 (14:00→19:41)
--- NOTE | 2020-05-14 14:25 | PDOC ---
[employer] PROGRESS NOTE Date of Service DOS: DATE: 05/14/20 TIME: 14:24 Chief Complaint Chief Complaint A/P: Acute hypoxic respiratory failure - likely RB ILD with acute bronchitis/copd component. Negative COVID 19 Accelerated HTN - dangerously high DBP, admitted for better control of this hypertensive emergency.cont low dose amlodipine. Negative 2/2 HTN w/u with normal renal dopplers, renin/safia pending. He notes having elevated BP as of 3 years ago. Smoking cessation is absolutely necessary Obesity - has been losing weight intentionally outpatient over the past 2 years. Will check A1c outpatient Smoker - 1.5ppd, offered nicotine patch. 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 CXR with no acute findings, but requiring high flow O2 15l/min. Admitted for further care. 05/13: Afebrile overnight. Down to 12 L nasal cannula O2 eating. After started on Combivent inhaler is breathing is significantly improving coughing up thick sputum. COVID-19 neg. Afebrile overnight. Now down to 8 L nasal cannula. Still coughing up thick sputum. He feels overall improved with less body aches. Vitals/I&O Vitals/I&O: Vital Signs Date Time Temp Pulse Resp B/P (MAP) Pulse Ox O2 Delivery O2 Flow Rate FiO2 05/14/20 02:45 98.2 90 17 131/80 (97) 94 Room Air 9.0 98.2 I & O 05/13/20 05/13/20 05/14/20 15:00 23:00 07:00 Intake Total 440 ml 300 ml Output Total 200 ml 200 ml 300 ml Balance 240 ml 100 ml -300 ml Physical Exam Physical Exam: GENERAL: In bed, awake, tired appearance HEENT: Pupils equally round, reactive. Normal conjunctivae. Oropharynx pink and moist. No lesions seen. NECK: Supple. No nuchal rigidity. LUNGS: Clear to auscultation. No accessory muscle use. HEART: Normal S1 and S2 regular. ABDOMEN: Obese, soft, nontender with bowel sounds present. EXTREMITIES: No gross edema or cyanosis. SKIN: Warm to touch. No signs of rash. NEUROLOGIC: Alert, oriented x 3. Moves all extremities. Peripheral IV looks okay. General: Alert, Oriented X3, Cooperative, mild distress Heart: Regular rate Lungs: Wheezing Abdomen: Normal bowel sounds, Soft Extremities: No clubbing, No cyanosis Skin: No rashes, No breakdown Labs Labs: Laboratory Tests Test 05/13/20 18:11 05/14/20 04:50 Coronavirus (PCR) Not detected (Not Detected) White Blood Count 17.9 x10^3/uL (4.0-11.0) Red Blood Count 5.21 x10^6/uL (4.30-5.70) Hemoglobin 15.9 g/dL (13.0-17.5) Hematocrit 46.1 % (39.0-53.0) Mean Corpuscular Volume 88 fL (79-100) Mean Corpuscular Hemoglobin 30 pg (25-35) Mean Corpuscular Hemoglobin Concent 34 g/dL (31-37) Red Cell Distribution Width 13.5 % (11.5-14.5) Platelet Count 263 x10^3/uL (140-400) Neutrophils (%) (Auto) 72 % (31-73) Lymphocytes (%) (Auto) 20 % (24-48) Monocytes (%) (Auto) 5 % (0-9) Eosinophils (%) (Auto) 3 % (0-3) Basophils (%) (Auto) 0 % (0-3) Neutrophils # (Auto) 12.9 x10^3/uL (1.8-7.7) Lymphocytes # (Auto) 3.5 x10^3/uL (1.0-4.8) Monocytes # (Auto) 0.9 x10^3/uL (0.0-1.1) Eosinophils # (Auto) 0.5 x10^3/uL (0.0-0.7) Basophils # (Auto) 0.1 x10^3/uL (0.0-0.2) Segmented Neutrophils % 66 % (35-66) Band Neutrophils % 3 % (0-9) Lymphocytes % 20 % (24-48) Monocytes % 5 % (0-10) Eosinophils % 4 % (0-5) Basophils % 1 % (0-3) Metamyelocytes % 1 % (0-0) Platelet Estimate Adequate (ADEQUATE) Assessment and Plan Assessmemt and Plan Problems Medical Problems: (1) COPD (chronic obstructive pulmonary disease) Status: Acute Comment Review of Relevant I have reviewed the following items trent (where applicable) has been applied. Medications: Current Medications Medications (Trade) Dose Ordered Sig/Jose Route PRN Reason Start Time Stop Time Status Last Admin Dose Admin Albuterol/ Ipratropium (Duoneb) 3 ml RTQID NEB 05/13/20 16:00 05/13/20 19:06 Budesonide (Pulmicort) 0.5 mg RTBID NEB 05/13/20 20:00 05/13/20 19:06 Lactobacillus Rhamnosus (Culturelle) 1 cap BID PO 05/13/20 21:00 05/13/20 21:05 Zolpidem Tartrate (Ambien) 5 mg PRN QHS PRN PO INSOMNIA 05/13/20 19:15 05/13/20 21:05 Lorazepam (Ativan) 0.5 mg PRN Q6HRS PRN PO ANXIETY / AGITATION 05/13/20 19:15 05/13/20 21:05 Justifications for Admission Other Justification Respiratory failure ZHEN MEYER MD May 14, 2020 14:25
--- NOTE | 2020-05-14 14:45 | NUR ---
SW following for discharge planning. Spoke with RN and reviewed chart. Pt's COVID result came back negative. Pt remains on IV Zosyn. Pt down to 8l 02. Pt will likely need a 6 min walk prior to discharge. Discharge plan is home, self-care. SW following.
[2020-05-14 15:00] VITALS: BP 115/74
[2020-05-14 19:00] VITALS: BP 126/80
[2020-05-14] MEDS: ZOLPIDEM 5 MG TABLET. PO PRN (21:16)
[2020-05-14 23:00] VITALS: BP 126/72
[2020-05-15] MEDS: PIPERACILLIN/TAZOBACTAM 3.375 GM in IV NORMAL SALINE 50ML 50 ML IV SCH ×2 (00:50→06:06)
[2020-05-15 02:39] VITALS: BP 134/78
[2020-05-15 07:00] VITALS: BP 124/79
[2020-05-15] MEDS: IPRATRPIUM/ALBUTEROL 0.5/2.5MG 3 ML NEBU. NEB SCH ×2 (07:17→11:45)
[2020-05-15] MEDS: BUDESONIDE 0.5 MG/2 ML NEBU. NEB SCH (07:17)
[2020-05-15] MEDS: IPRATROPIUM/ALBUTEROL 20/100mcg/INH INHALER. INH SCH (08:00)
--- NOTE | 2020-05-15 08:33 | PDOC ---
PULMONARY PROGRESS NOTES DATE: 05/15/20 TIME: 08:32 Subjective Patient feels better, not more short of air less wheeze Vitals Vital Signs Date Time Temp Pulse Resp B/P (MAP) Pulse Ox O2 Delivery O2 Flow Rate FiO2 05/15/20 07:17 96 Nasal Cannula 8.0 05/15/20 07:00 97.2 91 22 124/79 (94) 97.2 ROS: No Nausea, No Chest Pain, No Abdominal Pain, No Increase Cough General: Alert Lungs: Wheezing Cardiovascular: S1, S2 Abdomen: Soft Neuro Exam: Alert Extremities: No Edema Skin: Warm Labs Laboratory Tests Test 05/13/20 18:11 05/14/20 04:50 Coronavirus (PCR) Not detected (Not Detected) White Blood Count 17.9 x10^3/uL (4.0-11.0) Red Blood Count 5.21 x10^6/uL (4.30-5.70) Hemoglobin 15.9 g/dL (13.0-17.5) Hematocrit 46.1 % (39.0-53.0) Mean Corpuscular Volume 88 fL (79-100) Mean Corpuscular Hemoglobin 30 pg (25-35) Mean Corpuscular Hemoglobin Concent 34 g/dL (31-37) Red Cell Distribution Width 13.5 % (11.5-14.5) Platelet Count 263 x10^3/uL (140-400) Neutrophils (%) (Auto) 72 % (31-73) Lymphocytes (%) (Auto) 20 % (24-48) Monocytes (%) (Auto) 5 % (0-9) Eosinophils (%) (Auto) 3 % (0-3) Basophils (%) (Auto) 0 % (0-3) Neutrophils # (Auto) 12.9 x10^3/uL (1.8-7.7) Lymphocytes # (Auto) 3.5 x10^3/uL (1.0-4.8) Monocytes # (Auto) 0.9 x10^3/uL (0.0-1.1) Eosinophils # (Auto) 0.5 x10^3/uL (0.0-0.7) Basophils # (Auto) 0.1 x10^3/uL (0.0-0.2) Segmented Neutrophils % 66 % (35-66) Band Neutrophils % 3 % (0-9) Lymphocytes % 20 % (24-48) Monocytes % 5 % (0-10) Eosinophils % 4 % (0-5) Basophils % 1 % (0-3) Metamyelocytes % 1 % (0-0) Platelet Estimate Adequate (ADEQUATE) Medications Active Scripts Medications Dose Route/Sig Max Daily Dose Days Date Category Venlafaxine Hcl Er (Venlafaxine Hcl) 75 Mg Cap.er.24h 1 Cap PO DAILY 05/12/20 Reported Amlodipine Besylate 10 Mg Tablet 10 Mg PO DAILY 30 08/09/18 Rx Chlorthalidone (Chlorthalidone) 25 Mg Tablet 25 Mg PO DAILY 30 08/09/18 Rx [Nicotine 21MG] 1 PATCH Patch 1 Patch TD DAILY 30 08/09/18 Rx Impression . IMPRESSION: 1. Acute exacerbation of chronic obstructive pulmonary disease. 2. Progressive dyspnea secondary to above. 3. Obesity. 4. Tobacco dependent. 5. Leukocytosis, suspect related to stress, reactive/stress. 6. Hypertension. 7. SARS Covid 2 - negative x2. 8. Rule out cardiomyopathy 9. Clinical symptoms and signs of obstructive sleep apnea GRAM STAIN EVALUATION Final Final This specimen is of good quality and is acceptable for routine bacterial culture. Culture results to follow. GRAM POSITIVE RODS:FEW GRAM POSITIVE COCCI:RARE SQUAMOUS EPI CELL:RARE PMN (WBCs):MODERATE Unless otherwise specified, Testing Performed by: [address] [address] For Inquires, the Physician may contact the Microbiology department at [phone] RESPIRATORY CULTURE PENDING Plan . Discharge home, discussed with Dr. Lucero 6-minute walk, patient did not require oxygen supplementation Discussed with Dr. Lucero continue steroids, Symbicort, albuterol as needed Continue treatment for acute exacerbation of COPD Echo pending Outpatient polysomnogram Discussed with patient, importance of discontinue tobacco use. AXEL SANCHEZ MD May 15, 2020 08:33
[2020-05-15] MEDS: DOXYCYCLINE HYCLATE 100 MG TABLET PO SCH (09:28)
[2020-05-15] MEDS: LACTOBACILLUS RHAMNOSUS GG 1 CAPSULE. PO SCH (09:29)
[2020-05-15] MEDS: amLODIPine BESYLATE 5 MG TABLET PO SCH (09:29)
[2020-05-15] MEDS: ASCORBIC ACID 1,000 MG TABLET PO SCH (09:29)
[2020-05-15] MEDS: THIAMINE 100 MG TABLET. PO SCH (09:30)
[2020-05-15] MEDS: PANTOPRAZOLE 40 MG TABLET.DR. PO SCH (09:30)
[2020-05-15] MEDS: NICOTINE 21MG PATCH. TD SCH (09:40)
[2020-05-15] MEDS: DEXAMETHASONE SOD PHOS 4 MG/ML VIAL IVP SCH (09:40)
--- NOTE | 2020-05-15 09:47 | PDOC ---
Infectious Disease Note Subjective Subjective Patient says he is feeling even more better this morning. He wants to get up walk and shower. His appetite has returned and he ate a good breakfast. He still is experiencing some chest congestion and cough but not as bad. He remains on 8 L. No fevers/chills/aches. + loose stools. ROS ROS as mentioned above otherwise neg Vital Sign Vital Signs Vital Signs Date Time Temp Pulse Resp B/P (MAP) Pulse Ox O2 Delivery O2 Flow Rate FiO2 05/15/20 07:17 96 Nasal Cannula 8.0 05/15/20 07:00 97.2 91 22 124/79 (94) 97.2 Physical Exam PHYSICAL EXAM GENERAL: Propped up in bed, alert, talkative - looks better HEENT: Normal conjunctivae. Oropharynx pink and moist. No lesions seen. NECK: Supple. No nuchal rigidity. LUNGS: Clear to auscultation. No accessory muscle use. HEART: Normal S1 and S2 regular. ABDOMEN: Obese, soft, nontender with bowel sounds present. EXTREMITIES: No gross edema or cyanosis. SKIN: Warm to touch. No signs of rash. NEUROLOGIC: Alert, oriented x 3. Moves all extremities. Peripheral IV looks okay. Labs Micro 05/11/20 Blood Culture - Preliminary, Resulted NO GROWTH AFTER 3 DAYS 05/13 Sputum GRAM STAIN EVALUATION Final Final This specimen is of good quality and is acceptable for routine bacterial culture. Culture results to follow. GRAM POSITIVE RODS:FEW GRAM POSITIVE COCCI:RARE SQUAMOUS EPI CELL:RARE PMN (WBCs):MODERATE RESPIRATORY CULTURE PENDING Objective Assessment COVID viral pneumonia suspected. neg 05/11 and 05/13. Sepsis - improved Acute respiratory failure.,Bronchitis - GPC Hypertension. Leucocytosis ,eosinophilia, lymphopenia, improved Smoking Plan Plan of Care Clinically improving, cont current antibiotics Monitor labs/temp F/u sputum culture Maintain aspiration precautions. Encouraged to quit smoking Attending Co-Sign The patient was seen and interviewed as well as examined at the bedside. OK to dc home from id standpoint . D/W MARY Levy APRN May 15, 2020 09:47 GABI ASTORGA MD May 15, 2020 12:36
[2020-05-15 11:00] VITALS: BP 132/88
[2020-05-15] MEDS ORDERED: PRED20TA PO (12:26)
[2020-05-15] MEDS ORDERED: PANT40TA77 PO (12:26)
[2020-05-15] MEDS ORDERED: DOXY100T PO (12:26)
[2020-05-15] MEDS ORDERED: VARE1TAB21 PO (12:26)
--- NOTE | 2020-05-15 12:28 | PDOC ---
[employer] PROGRESS NOTE Date of Service DOS: DATE: 05/15/20 TIME: 12:27 Chief Complaint Chief Complaint A/P: Acute hypoxic respiratory failure - likely RB ILD with acute bronchitis/copd component. Negative COVID 19 Accelerated HTN - dangerously high DBP, admitted for better control of this hypertensive emergency.cont low dose amlodipine. Negative 2/2 HTN w/u with normal renal dopplers, renin/safia pending. He notes having elevated BP as of 3 years ago. Smoking cessation is absolutely necessary Obesity - has been losing weight intentionally outpatient over the past 2 years. Will check A1c outpatient Smoker - 1.5ppd, offered nicotine patch. 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 CXR with no acute findings, but requiring high flow O2 15l/min. Admitted for further care. 05/13: Afebrile overnight. Down to 12 L nasal cannula O2 eating. After started on Combivent inhaler is breathing is significantly improving coughing up thick sputum. COVID-19 neg. 05/14: Afebrile overnight. Now down to 8 L nasal cannula. Still coughing up thick sputum. He feels overall improved with less body aches. Afebrile overnight. On 6-minute walk in room with patient O2 saturations maintained between 92% 96% per my examination. He is breathing better very slight wheezes. Has Combivent inhaler prednisone and doxycycline for 5 days and outpatient pulmonology follow-up for spirometry smoking cessation emphasized and will do maintenance 1 mg twice daily Chantix prescription with 2 refills until he is able to follow-up with his primary care doctor Dr. Brownlee Consults: ID, pulm Vitals/I&O Vitals/I&O: Vital Signs Date Time Temp Pulse Resp B/P (MAP) Pulse Ox O2 Delivery O2 Flow Rate FiO2 05/15/20 11:45 96 Nasal Cannula 6.0 05/15/20 11:00 98.3 95 28 132/88 (103) 98.3 I & O 05/14/20 05/14/20 05/15/20 15:00 23:00 07:00 Intake Total 300 ml Output Total 400 ml 650 ml Balance -100 ml -650 ml Physical Exam Physical Exam: GENERAL: Propped up in bed, alert, talkative - looks better HEENT: Normal conjunctivae. Oropharynx pink and moist. No lesions seen. NECK: Supple. No nuchal rigidity. LUNGS: Clear to auscultation. No accessory muscle use. HEART: Normal S1 and S2 regular. ABDOMEN: Obese, soft, nontender with bowel sounds present. EXTREMITIES: No gross edema or cyanosis. SKIN: Warm to touch. No signs of rash. NEUROLOGIC: Alert, oriented x 3. Moves all extremities. Peripheral IV looks okay. General: Alert, Oriented X3, Cooperative, mild distress Heart: Regular rate Lungs: Wheezing Abdomen: Normal bowel sounds, Soft Extremities: No clubbing, No cyanosis Skin: No rashes, No breakdown Assessment and Plan Assessmemt and Plan Problems Medical Problems: (1) COPD (chronic obstructive pulmonary disease) Status: Acute Comment Review of Relevant I have reviewed the following items trent (where applicable) has been applied. Medications: Current Medications Medications (Trade) Dose Ordered Sig/Jose Route PRN Reason Start Time Stop Time Status Last Admin Dose Admin Piperacillin Sod/ Tazobactam Sod 3.375 gm/Sodium Chloride 50 ml @ 100 mls/hr Q6HRS IV 05/14/20 14:00 05/15/20 06:06 Justifications for Admission Other Justification Respiratory failure ZHEN MEYER MD May 15, 2020 12:28
--- NOTE | 2020-05-15 12:29 | PDOC3 ---
Discharge Summary Visit Information Date of Admission: May 12, 2020 Date of Discharge: May 15, 2020 Admitting Diagnosis: Acute hypoxic respiratory failure Final Diagnosis Problems Medical Problems: (1) COPD (chronic obstructive pulmonary disease) Status: Acute Brief Hospital Course Allergies Allergies Coded Allergies Type Severity Reaction Last Updated Verified No Known Drug Allergies 08/24/17 No Vital Signs Vital Signs Date Time Temp Pulse Resp B/P (MAP) Pulse Ox O2 Delivery O2 Flow Rate FiO2 05/15/20 11:45 96 Nasal Cannula 6.0 05/15/20 11:00 98.3 95 28 132/88 (103) 98.3 Lab Results Laboratory Tests Test 05/13/20 18:11 05/14/20 04:50 Coronavirus (PCR) Not detected (Not Detected) White Blood Count 17.9 x10^3/uL (4.0-11.0) Red Blood Count 5.21 x10^6/uL (4.30-5.70) Hemoglobin 15.9 g/dL (13.0-17.5) Hematocrit 46.1 % (39.0-53.0) Mean Corpuscular Volume 88 fL (79-100) Mean Corpuscular Hemoglobin 30 pg (25-35) Mean Corpuscular Hemoglobin Concent 34 g/dL (31-37) Red Cell Distribution Width 13.5 % (11.5-14.5) Platelet Count 263 x10^3/uL (140-400) Neutrophils (%) (Auto) 72 % (31-73) Lymphocytes (%) (Auto) 20 % (24-48) Monocytes (%) (Auto) 5 % (0-9) Eosinophils (%) (Auto) 3 % (0-3) Basophils (%) (Auto) 0 % (0-3) Neutrophils # (Auto) 12.9 x10^3/uL (1.8-7.7) Lymphocytes # (Auto) 3.5 x10^3/uL (1.0-4.8) Monocytes # (Auto) 0.9 x10^3/uL (0.0-1.1) Eosinophils # (Auto) 0.5 x10^3/uL (0.0-0.7) Basophils # (Auto) 0.1 x10^3/uL (0.0-0.2) Segmented Neutrophils % 66 % (35-66) Band Neutrophils % 3 % (0-9) Lymphocytes % 20 % (24-48) Monocytes % 5 % (0-10) Eosinophils % 4 % (0-5) Basophils % 1 % (0-3) Metamyelocytes % 1 % (0-0) Platelet Estimate Adequate (ADEQUATE) Brief Hospital Course Mr Garcia is a 32 year old male w/ PMHx 1.5ppd smoker, chronic right otitis media, elevated blood pressure who presents to ER c/o shortness of breath off and on over the past several weeks with multiple negative COVID 19 tests. CXR with no acute findings, but requiring high flow O2 15l/min. Admitted for further care. 05/13: Afebrile overnight. Down to 12 L nasal cannula O2 eating. After started on Combivent inhaler is breathing is significantly improving coughing up thick sputum. COVID-19 neg. 05/14: Afebrile overnight. Now down to 8 L nasal cannula. Still coughing up thick sputum. He feels overall improved with less body aches. Afebrile overnight. On 6-minute walk in room with patient O2 saturations maintained between 92% 96% per my examination. He is breathing better very slight wheezes. Has Combivent inhaler prednisone and doxycycline for 5 days and outpatient pulmonology follow-up for spirometry smoking cessation emphasized and will do maintenance 1 mg twice daily Chantix prescription with 2 refills until he is able to follow-up with his primary care doctor Dr. Brownlee Consults: ID, pulm Problem list: Acute hypoxic respiratory failure - likely RB ILD with acute bronchitis/copd component. Negative COVID 19 Accelerated HTN - dangerously high DBP, admitted for better control of this hypertensive emergency.cont low dose amlodipine. Negative 2/2 HTN w/u with normal renal dopplers, renin/safia pending. He notes having elevated BP as of 3 years ago. Smoking cessation is absolutely necessary Obesity - has been losing weight intentionally outpatient over the past 2 years. Will check A1c outpatient Smoker - 1.5ppd, offered nicotine patch. 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 and somewhat chronic otitis in his right ear, currently not symptomatic Headache - likely 2/2 his elevated BP, tylenol prn for this, treat BP Greater than 30 minutes spent on d/c home with self care Discharge Information Condition at Discharge: Improved Follow Up: Weeks (1) Disposition/Orders: D/C to Home Scheduled Amlodipine Besylate (Amlodipine Besylate) 10 Mg Tablet, 10 MG PO DAILY for 30 for 30 Days, #30 Ref 2 Prescribed by: ZHEN MEYER MD on 08/09/18954 Last Taken: Unknown Dose on 05/11/20 Last Action: Continued on 05/13/201312 by ZHEN MEYER MD Doxycycline Hyclate (Doxycycline Hyclate) 100 Mg Tablet, 100 MG PO BID for Bronchitis/RAD for 5 Days, #10 Prescribed by: ZHEN MEYER MD on 05/15/20 1226 Pantoprazole Sodium (Pantoprazole Sodium ) 40 Mg Tablet.dr, 40 MG PO DAILYAC for GERD for 30 Days, #30 Prescribed by: ZHEN MEYER MD on 05/15/20 1226 Prednisone (Prednisone) 20 Mg Tablet, 1 TAB PO DAILY for Bronchitis/RAD for 5 Days, #5 Prescribed by: ZHEN MEYER MD on 05/15/20 1226 Varenicline Tartrate (Chantix) 1 Mg Tablet, 1 MG PO BID for Smoking cessation for 30 Days, #60 Ref 2 Prescribed by: ZHEN MEYER MD on 05/15/201225 Venlafaxine Hcl (Venlafaxine Hcl Er) 75 Mg Cap.er.24h, 1 CAP PO DAILY for anxiety, (Reported) Entered as Reported by: JYOTI OLIVEROS on 05/12/20344 Last Taken: Unknown Dose on 05/11/20 Last Action: New Order on 05/12/20344 by JYOTI OLIVEROS [Nicotine 21MG] 1 PATCH PATCH, 1 PATCH TD DAILY for Smoking cessation for 30 Days, #30 Ref 3 Prescribed by: ZHEN MEYER MD on 08/09/18954 Last Action: Converted on 05/13/201312 by ZHEN MEYER MD Discontinued Medications Chlorthalidone (Chlorthalidone ) 25 Mg Tablet, 25 MG PO DAILY for HTN for 30 Days, #30 Ref 2 Prescribed by: ZHEN MEYER MD on 08/09/18954 Last Taken: Unknown Dose on 05/11/20 Last Action: Last Taken Edited on 05/12/20 0007 by JYOTI OLIVEROS Justicifation of Admission Dx: Justifications for Admission: Justification of Admission Dx: Yes ZHEN MEYER MD May 15, 2020 12:29
--- NOTE | 2020-05-15 13:21 | NUR ---
SW following for discharge planning. Spoke with RN and reviewed chart. Pt to discharge home today, self-care. Pt on room air. No 6 min walk needed. No further SW needs at this time.
[2020-05-15] MEDS ORDERED: BUDE10.22 IH (13:54)
--- NOTE | 2020-05-15 14:38 | NUR ---
pt was discharged home with self care, he was given his discharge paperwork and was told that all his prescriptions were sent to his pharmacy. he was walked down to the main entrance by the MERVIN Springer and taken home by his Jody. Flash Kyle RN
== END 2020-05-15 14:00 | disposition home or self-care (01) | DRG 871 ==
LOC: ER 20:57 → 6 SOUTH 05-12 02:35
PROVIDERS: ADMIT Internal Medicine; ATTEND Internal Medicine
DX: A41.9 Sepsis, unspecified organism (principal); J96.01 Acute respiratory failure with hypoxia; J44.0 Chronic obstructive pulmonary disease with (acute) lower respiratory infection; I16.1 Hypertensive emergency; J44.1 Chronic obstructive pulmonary disease with (acute) exacerbation; I10 Essential (primary) hypertension; F17.200 Nicotine dependence, unspecified, uncomplicated; E66.9 Obesity, unspecified; D72.10 Eosinophilia, unspecified; D72.810 Lymphocytopenia; Z20.822 Contact with and (suspected) exposure to COVID-19; J20.9 Acute bronchitis, unspecified; F41.9 Anxiety disorder, unspecified; Z68.33 Body mass index [BMI] 33.0-33.9, adult
CPT/HCPCS: 36415; 71045; 80048; 80053; 80307; 81001; 82550; 82803; 83605; 83735; 83880; 84100; 84484; 85007; 85025; 85379; 87040; 87070; 87205; 87491; 87591; 87804; 93005; 94640; 94760; J1100; J2543; J3490; U0003; 99285-25; G0378; J7626

== ENCOUNTER 2020-07-25 18:28 | Emergency (ER) | payer BC ==
[~2020-07-25] VITALS: Ht 182.9 cm; Wt 113.6 kg
[~2020-07-25 18:28] MED LIST changes: +BUDE10.22 IH; +DOXY100T PO; +PANT40TA77 PO; +PRED20TA PO; +VARE1TAB21 PO; +VENL75CA6 PO
--- NOTE | 2020-07-25 19:22 | EKG ---
[facility] [address] [place] [address] Test Date: 2020-07-25 Test Time: 18:36:02 Pat Name: JOHNNY NOE Department: Room: Gender: M Field Identification Specialist: : [id number] Requested By: KAYLENE OAKES Order Number: [id number] Reading MD: Measurements Intervals [place] Rate: 97 P: -104 TX: 146 QRS: 20 QRSD: 90 T: 30 QT: 386 QTc: 495 Interpretive Statements SINUS RHYTHM PROLONGED QT NO SPECIFIC ECG ABNORMALITIES RI6.01 No previous ECG available for comparison
[2020-07-25 19:40] LABS: BASO # 0.1 x10^3/uL (0.0-0.2); BASO % 0 % (0-3); EOS # 0.1 x10^3/uL (0.0-0.7); EOS % 0 % (0-3); HEMATOCRIT 46.1 % (39.0-53.0); HEMOGLOBIN 16.4 g/dL (13.0-17.5); LYMPH # 1.9 x10^3/uL (1.0-4.8); LYMPH % 11 % (24-48); MEAN CORPUSCULAR HEMOGLOBIN 30 pg (25-35); MEAN CORPUSCULAR HGB CONC 36 g/dL (31-37); MEAN CORPUSCULAR VOLUME 85 fL (79-100); MONO # 0.6 x10^3/uL (0.0-1.1); MONO % 3 % (0-9); NEUT # 14.8 x10^3/uL (1.8-7.7); NEUT % 85 % (31-73); PLATELET COUNT 328 x10^3/uL (140-400); RED BLOOD COUNT 5.42 x10^6/uL (4.30-5.70); RED CELL DISTRIBUTION WIDTH 13.1 % (11.5-14.5); WHITE BLOOD COUNT 17.3 x10^3/uL (4.0-11.0)
[2020-07-25 19:40] LABS: BILIRUBIN,URINE NEGATIVE (NEG); CLARITY,URINE CLEAR; COLOR,URINE YELLOW; NITRITE,URINE NEGATIVE (NEG); PH,URINE 6.5 (<5.0-8.0); PROTEIN,URINE NEGATIVE (NEG-TRACE)
--- NOTE | 2020-07-25 19:43 | ED.ADGEN ---
Past Medical History Past Medical History: Anxiety, Hypertension Past Surgical History: No Surgical History Smoking Status: Current Every Day Smoker Additional Information: 1 PPD Alcohol Use: Occasionally Drug Use: None General Adult EDM: Chief Complaint: CHEST PAIN HPI: HPI: Patient is a 34-year-old male past medical history of hypertension who presents to the emergency room complaining of substernal chest pain with radiation into the left arm that started about 2 hours ago. Patient states that he did use cocaine earlier today for the first time in over 10 years with a friend. He shortly thereafter developed the chest pain with associated shortness of breath and some lower abdominal pain. He denies any nausea or vomiting. He has had intermittent diaphoresis. He states that the pain feels like pressure and is severe in nature. Review of Systems: Review of Systems: Complete ROS is negative unless otherwise documented in HPI Current Medications: Current Medications Medications (Trade) Dose Ordered Sig/Jose Start Time Stop Time Status Last Admin Dose Admin Potassium Chloride/Water 100 ml @ 100 mls/hr Q1H 07/25/20 21:00 07/25/20 22:59 DC 07/25/20 22:18 100 MLS/HR Potassium Chloride (Klor-Con) 40 meq 1X ONCE 07/25/20 20:30 07/25/20 20:31 DC 07/25/20 20:39 40 MEQ Sodium Chloride 1,000 ml @ 1,000 mls/hr 1X ONCE 07/25/20 20:30 07/25/20 21:29 DC 07/25/20 20:40 1,000 MLS/HR Allergies: Allergies: Allergies Coded Allergies Type Severity Reaction Last Updated Verified No Known Drug Allergies 08/24/17 No Physical Exam: PE: General: Awake, alert, NAD. Well Nourished, well hydrated. Cooperative HEENT: Atraumatic, EOMI, PERRL, airway patent, moist oral mucosa Neck: Supple, trachea midline Respiratory: CTA bilaterally, normal effort, no wheezing/crackles CV: RRR, no murmur, cap refill <2 GI: Soft, nondistended, nontender, no masses MSK: No obvious deformities Skin: Warm, dry, intact Neuro: A&O x3, speech NL, sensory and motor grossly intact, no focal deficits Psych: Anxious, not suicidal or homicidal Current Patient Data: Labs: Laboratory Tests Test 07/25/20 19:15 07/25/20 19:30 07/25/20 22:15 Urine Collection Type Unknown Urine Color Yellow Urine Clarity Clear Urine pH 6.5 (<5.0-8.0) Urine Specific [place] 1.020 (1.000-1.030) Urine Protein Negative mg/dL (NEG-TRACE) Urine Glucose (UA) Negative mg/dL (NEG) Urine Ketones (Stick) Negative mg/dL (NEG) Urine Blood Negative (NEG) Urine Nitrite Negative (NEG) Urine Bilirubin Negative (NEG) Urine Urobilinogen Dipstick 1.0 mg/dL (0.2 mg/dL) Urine Leukocyte Esterase Negative (NEG) Urine RBC 0 /HPF (0-2) Urine WBC 1-4 /HPF (0-4) Urine Squamous Epithelial Cells Occ /LPF Urine Bacteria 0 /HPF (0-FEW) Urine Mucus Slight /LPF White Blood Count 17.3 x10^3/uL (4.0-11.0) H Red Blood Count 5.42 x10^6/uL (4.30-5.70) Hemoglobin 16.4 g/dL (13.0-17.5) Hematocrit 46.1 % (39.0-53.0) Mean Corpuscular Volume 85 fL (79-100) Mean Corpuscular Hemoglobin 30 pg (25-35) Mean Corpuscular Hemoglobin Concent 36 g/dL (31-37) Red Cell Distribution Width 13.1 % (11.5-14.5) Platelet Count 328 x10^3/uL (140-400) Neutrophils (%) (Auto) 85 % (31-73) H Lymphocytes (%) (Auto) 11 % (24-48) L Monocytes (%) (Auto) 3 % (0-9) Eosinophils (%) (Auto) 0 % (0-3) Basophils (%) (Auto) 0 % (0-3) Neutrophils # (Auto) 14.8 x10^3/uL (1.8-7.7) H Lymphocytes # (Auto) 1.9 x10^3/uL (1.0-4.8) Monocytes # (Auto) 0.6 x10^3/uL (0.0-1.1) Eosinophils # (Auto) 0.1 x10^3/uL (0.0-0.7) Basophils # (Auto) 0.1 x10^3/uL (0.0-0.2) Segmented Neutrophils % 73 % (35-66) H Band Neutrophils % 9 % (0-9) Lymphocytes % 14 % (24-48) L Monocytes % 4 % (0-10) Platelet Estimate Adequate (ADEQUATE) Sodium Level 138 mmol/L (136-145) Potassium Level 2.4 mmol/L (3.5-5.1) *L 3.2 mmol/L (3.5-5.1) L Chloride Level 97 mmol/L (98-107) L Carbon Dioxide Level 27 mmol/L (21-32) Anion Gap 14 (6-14) Blood Urea Nitrogen 9 mg/dL (8-26) Creatinine 0.9 mg/dL (0.7-1.3) Estimated GFR (Cockcroft-Gault) 97.8 BUN/Creatinine Ratio 10 (6-20) Glucose Level 136 mg/dL (70-99) H Calcium Level 9.5 mg/dL (8.5-10.1) Total Bilirubin 1.1 mg/dL (0.2-1.0) H Aspartate Amino Transferase (AST) 20 U/L (15-37) Alanine Aminotransferase (ALT) 41 U/L (16-63) Alkaline Phosphatase 75 U/L (46-116) Troponin I Quantitative 0.021 ng/mL (0.000-0.055) 0.023 ng/mL (0.000-0.055) RM-Lzz-U-Type Natriuretic Peptide 10 pg/mL (0-124) Total Protein 7.9 g/dL (6.4-8.2) Albumin 4.4 g/dL (3.4-5.0) Albumin/Globulin Ratio 1.3 (1.0-1.7) Lipase 45 U/L (73-393) L Laboratory Tests 07/25/20 19:30 Laboratory Tests 07/25/20 19:30 07/25/20 22:15 Vital Signs: Vital Signs Date Time Temp Pulse Resp B/P (MAP) Pulse Ox O2 Delivery O2 Flow Rate FiO2 07/25/20 22:13 98.9 96 15 122/79 (93) 93 Room Air 98.9 EKG: EKG: [] Heart Score: C/O Chest Pain: Yes HEART Score for Chest Pain: HEART Score for Chest Pain Response (Comments) Value History Moderately Suspicious 1 ECG Normal 0 Age < 45 0 Risk Factors 1 or 2 Risk Factors 1 Troponin < Normal Limit 0 Total 2 Risk Factors: Risk Factors: DM, Current or recent (<one month) smoker, HTN, HLP, family history of CAD, obesity. Risk Scores: Score 0 - 3: 2.5% MACE over next 6 weeks - Discharge Home Score 4 - 6: 20.3% MACE over next 6 weeks - Admit for Clinical Observation Score 7 - 10: 72.7% MACE over next 6 weeks - Early Invasive Strategies Radiology/Procedures: Radiology/Procedures: [] Course & Med Decision Making: Course & Med Decision Making Pertinent Labs and Imaging studies reviewed. (See chart for details) Patient is a 34 year-old male who presents to the Emergency Room complaining of chest pain with shortness of breath after using cocaine. History is significant for recent cocaine use. At this time, given patient's risk factors and story there is concern for possible cardiac pathology. EKG was ordered and shows sinus tachycardia. At this time there is no signs of STEMI, pericarditis, or unstable arrthymia on EKG. Patient has received aspirin today. CBC, BMP, troponin, CXR were ordered to evaluate for causes of chest pain including ACS, anemia, electrolyte abnormalities that can lead to arrhythmias, PTX, pneumonia, pneumomediastinum. Patient does not have any abdominal tenderness that would suggest pancreaititis or cholecystitis and does not need an abdominal work up at this time. Patient's HEART score is 2 placing the patient at low risk. Delta troponin is negative. Repeat potassium has significantly improved with replacement. Patient is feeling significantly better and would like to go home. Patient's test results and vitals while in the ED were fully reviewed and discussed with the patient. Patient is stable and at this time does not need a dmission to the hospital. We have discussed strict return precautions and the importance of following up with their Primary Care Physician. Patient stated understanding and was given an opportunity to ask any questions. Patient is in agreement with plan. Frank Disclaimer: Frank Disclaimer: This electronic medical record was generated, in whole or in part, using a voice recognition dictation system. Departure Departure Impression: Primary Impression: Chest pain Additional Impressions: Cocaine abuse Hypokalemia Disposition: HOME / SELF CARE / HOMELESS Condition: IMPROVED Referrals: JOHAN BAGLEY MD (PCP) Patient Instructions: Chest Pain (Nonspecific), Hypokalemia Scripts Potassium Chloride (KLOR-CON M20) 20 Meq Tab.er.prt 1 TAB PO DAILY for 5 Days, #5 TAB 0 Refills Prov: KAYLENE OAKES MD 07/26/20 Problem Qualifiers KAYLENE OAKES MD Jul 25, 2020 19:43
--- NOTE | 2020-07-25 19:45 | RAD ---
EXAM: CHEST 2 VIEWS. HISTORY: Chest pain. COMPARISON: 05/11/2020. FINDINGS: Frontal and lateral views of the chest are obtained. There are no confluent infiltrates. There is no pneumothorax or pleural effusion. The heart is not en larged. IMPRESSION: 1. No confluent infiltrates. Electronically signed by: Escobar Spence MD (07/25/2020 7:43 PM) [id number]
[2020-07-25 19:48] LABS: BACTERIA,URINE 0 /HPF (0-FEW); RBC,URINE 0 /HPF (0-2)
[2020-07-25 20:01] LABS: ALBUMIN 4.4 g/dL (3.4-5.0); ALBUMIN/GLOBULIN RATIO 1.3 (1.0-1.7); CALCIUM 9.5 mg/dL (8.5-10.1); CREATININE 0.9 mg/dL (0.7-1.3); GFR 97.8; TOTAL BILIRUBIN 1.1 mg/dL (0.2-1.0); TOTAL PROTEIN 7.9 g/dL (6.4-8.2)
[2020-07-25 20:05] LABS: POTASSIUM 2.4 mmol/L (3.5-5.1)
[2020-07-25 20:08] LABS: % BANDS 9 % (0-9); % LYMPHS 14 % (24-48); % MONOS 4 % (0-10); % SEGS 73 % (35-66); PLT ESTIMATE ADEQUATE (ADEQUATE)
[2020-07-25] MEDS ORDERED: POTASSIUM CHLORIDE 20 MEQ TABLET.ER. PO ONE (20:30)
[2020-07-25] MEDS ORDERED: IV NORMAL SALINE 1000ML BAG 1,000 ML IV ONE (20:30)
[2020-07-25] MEDS: POTASSIUM CHLORIDE 10MEQ 100 ML IV SCH ×2 (20:40→22:18)
[2020-07-26] MEDS ORDERED: POTA20TA4 PO (00:19)
[2020-07-26 00:43] VITALS: BP 134/85
== END 2020-07-26 00:52 | disposition home or self-care (01) ==
LOC: ER 18:28
DX: R07.2 Precordial pain (principal); F14.10 Cocaine abuse, uncomplicated; E87.6 Hypokalemia; I10 Essential (primary) hypertension; F41.9 Anxiety disorder, unspecified; F17.200 Nicotine dependence, unspecified, uncomplicated
CPT/HCPCS: 36415; 71046; 80053; 81001; 83690; 83880; 84132; 84484; 85007; 85025; 93005; 96361; 96365; 96366; 99285; J3480; J7030

== ENCOUNTER → 2020-11-01 | Outpatient (CLI) | payer BC ==
[~2020-11-01] MED LIST changes: +POTA20TA4 PO
--- NOTE | 2020-11-01 13:58 | RAD ---
MR#: [id number] Date of Study: 11/01/2020 Ordering Physician: ADELINA DYE, Referring Physician: LEANNA NEVAREZ Tech: RT Marquis (Marie) (N) APPROVED REPORT Test Type: Exercise Stress Nurse/Tech: Mary Slaughter R.N. Test Indications: MARTINEZ Cardiac History: htn, dm, smoker Medications: see ehr Medical History: see ehr Resting ECG: sr Resting Heart Rate: 97 bpm Resting Blood Pressure: 144/95mmHg Pretest Chest Pain: No chest pain Nurse/Tech Notes lungs cta, heart tones regular Consent: The procedure was explained to the patient in lay terms. Informed consent was witnessed. Darin eout was entered into [employer]. History and Stress Test performed by ELIDA Olivares Stress Symptoms No chest pain or symptoms.Dyspnea POST EXERCISE Reason for Termination: Reached target heart rate Target HR: Yes Max HR: 180 bpm 96% of Maximum Predicted HR: 187 bpm Exercise duration: 8:16 min:sec, 3 Stage Exercise capacity: 10.0METs Max Blood Pressure: 187/63mmHg Blood Pressure response to exercise: Normal blood pressure response during stress. Heart Rate response to exercise: normal Chest Pain: No. Arrhythmia: No. ST Change: No. INTERPRETATION Stress EKG Conclusion: Baseline EKG showed sinus rhythm. No ischemic changes at peak stress. No arr hythmias. Imaging Protocol IMAGE PROTOCOL: Rest Tc-99m/stress Tc-99m 1 day Rest: Stress: Viability: Radiopharm.Tc99m QwqhtzlbdOz22y Sestamibi Vxjm15oBu 33mCi Duration 15min. 10min. Img Date 11/01/2020 11/01/2020 Inj-Img Jquf77qel. 60min. Rest Admin Site:IV - Right AntecubitalAdministrator:ELIDA Olivares Stress Admin Site: IV - Right AntecubitalAdministrator: ELIDA Olivares STRESS DATA End Diast. Vol.105.0mlAv. Heart Rate86.0bpm End Syst. Vol.37.0mlCO Index BSA0.0L/min Myocardial Zjbd282.0gEject. Imgoimlj10.0% Stress Rates Pk. Fill Rate3.33EDV/secLVtime Pk. Fill 193.95msec Pk. Empty Rate4.40ESV/secLVtime Pk. Qtlal185.25msec 1/3 Pk. Fill1.06EDV/sec Stress Scores Regional WT0.00Summed WT1.00 Regional WM0.00Summed WM2.00 Study quality was good. Left Ventricular size was Normal at Rest and Stress. Lung uptake was . Left Ventricular ejection fraction is 65%. The rest and stress images show normal perfusion, normal contraction and thickening. LV Perf. Quant 17 Seg. SSS2.00 17 Seg. SRS4.00 17 Seg. SDS0.00 Stress Defect Extent (% LAD)3.80Rest Defect Extent (% LAD)10.60Rev. Defect Extent (% LAD)0.00 Stress Defect Extent (% LCX) 10.00Rest Defect Extent (% LCX)17.50Rev. Defect Extent (% LCX)0.00 Stress Defect Extent (% RCA)0.00Rest Defect Extent (% RCA)0.00Rev. Defect Extent (% RCA)0.00 Stress Defect Extent (% EVELYNE)3.00Rest Defect Extent (% EVELYNE)7.20Rev. Defect Extent (% EVELYNE)0.00 Conclusion 1. Treadmill exercise cardioisotope stress test did not show any evidence of ischemia or infarct. 2. Normal left ventricular systolic function with ejection fraction calculated at 65%. 3. Low risk for cardiac events. Signed by : Jamaal Stockton, Electronically Approved : 11/01/2020 13:58:33
--- NOTE | 2020-11-01 14:07 | CARD ---
MR#: [id number] Date of Study: 11/01/2020 Ordering Physician: ADELINA DYE, Referring Physician: ADELINA DYE, Tech: Cuca Ibrahim, [facility] APPROVED REPORT EXAM: Two-dimensional and M-mode echocardiogram with Doppler and color Doppler. Other Information Quality : AverageHR: 79bpm INDICATION Dyspnea RISK FACTORS Hypertension Diabetes Smoking 2D DIMENSIONS RVDd3.9 (2.9-3.5cm)Left Atrium(2D)3.6 (1.6-4.0cm) IVSd1.1 (0.7-1.1cm)Aortic Root(2D)3.5 (2.0-3.7cm) LVDd4.9 (3.9-5.9cm)LVOT Diameter2.2 (1.8-2.4cm) PWd1.1 (0.7-1.1cm)LVDs3.5 (2.5-4.0cm) FS (%) 27.7 %SV59.4 ml LVEF(%)53.5 (>50%) Aortic Valve AoV Peak Eugenio.98.1cm/sAoV VTI16.0cm AO Peak GR.3.8mmHgLVOT Peak Eugenio.83.4cm/s LVOT VTI 15.80cmAO Mean GR.2mmHg MAHENDRA (VMAX)2.09ch2DNK (VTI)3.71cm2 Mitral Valve MV E Amjwylqy75.8cm/sMV DECEL [id number] MV A Vzbmffgt75.5cm/sMV SPC24qg E/A Ratio0.7MVA (PHT)2.51cm2 TDI E/Lateral E'4.6E/Medial E'4.8 Pulmonary Valve PV Peak Asheyfsy57.7cm/sPV Peak Grad.3mmHg Tricuspid Valve TR P. Svhbpfcb142xo/sRAP QPVRVHKZ2lhFr TR Peak Gr.94fjUbBKYI00zgPv Pulmonary Vein S1 Abaxaend57.2cm/sD2 Qbimeeds19.9cm/s PVa [id number] LEFT VENTRICLE The left ventricle is normal size. There is mild concentric left ventricular hypertrophy. The left ve ntricular systolic function is normal. The Ejection Fraction is 55%. There is normal LV segmental wal l motion. Transmitral Doppler flow pattern is Grade I-abnormal relaxation pattern. RIGHT VENTRICLE The right ventricle is normal size. There is normal right ventricular wall thickness. The right ventr icular systolic function is normal. ATRIA The left atrium size is normal. The right atrium size is normal. The interatrial septum is intact wit h no evidence for an atrial septal defect or patent foramen ovale as noted on 2-D or Doppler imaging. AORTIC VALVE The aortic valve is normal in structure and function. Doppler and Color Flow revealed trace aortic re gurgitation. There is no significant aortic valvular stenosis. Calculated aortic valve area is 3.59 c m2 with maximum pressure gradient of 5 mmHg and mean pressure gradient of 3 mmHg. MITRAL VALVE The mitral valve is normal in structure and function. There is no evidence of mitral valve prolapse. There is no mitral valve stenosis. Doppler and Color Flow revealed no mitral valve regurgitation note d. TRICUSPID VALVE The tricuspid valve is normal in structure and function. Doppler and Color Flow revealed trace tricus pid regurgitation with an estimated PAP of 28 mmHg. There is no tricuspid valve stenosis. PULMONIC VALVE The pulmonic valve is not well visualized. Doppler and Color Flow revealed trace pulmonic valvular re gurgitation. GREAT VESSELS The aortic root is normal in size. The IVC is normal in size and collapses >50% with inspiration. PERICARDIAL EFFUSION There is no evidence of significant pericardial effusion. Critical Notification Critical Value: No <Conclusion> The left ventricular systolic function is normal. The Ejection Fraction is 55%. There is normal LV segmental wall motion. Transmitral Doppler flow pattern is Grade I-abnormal relaxation pattern. Trace tricuspid regurgitation with an estimated PAP of 28 mmHg. There is no evidence of significant pericardial effusion. Signed by : Jamaal Stockton, Electronically Approved : 11/01/2020 14:07:07
== END ==
LOC: NM 09:23
PROVIDERS: ATTEND Internal Medicine Cardiovascular Disease
DX: I51.7 Cardiomegaly (principal)
CPT/HCPCS: 78452; 93017; 93306; A9500

== ENCOUNTER → 2020-11-06 | Outpatient (CLI) | payer BC ==
--- NOTE | 2020-11-08 09:06 | SLEEP ---
DATE OF STUDY: 11/06/2020 HOME SLEEP STUDY ATTENDING PHYSICIAN: Ingrid Brownlee MD The patient is a 35-year-old who weighs 250 pounds with a BMI of 33.9. The patient's [place] score is 13. The patient underwent home sleep study performed at [facility]. Total recording time was 499 minutes. During the night study, the patient had 2 obstructive apneas, 11 central apneas, 56 mixed apneas and 141 hypopneas. The patient's AHI was 33 per hour. Nocturnal oximetry study revealed an average oxygen saturation of 93% with lowest of 82%. Twenty minutes were spent with oxygen saturation less than 90%. Mean heart rate 78 beats per minute. IMPRESSION: 1. Severe obstructive sleep apnea at an AHI of 33 per hour. 2. Nocturnal hypoxia secondary to obstructive sleep apnea. RECOMMENDATIONS: 1. The patient will benefit from return to the sleep lab for CPAP titration study. 2. Once the patient is optimally treated with CPAP, then follow up in 4-6 weeks to assess compliance and to document clinical improvement. 3. Weight loss is advised. 4. Avoid GEAR TECHNICIAN depressants. 5. Cautioned regarding driving until symptoms of sleep apnea have resolved with CPAP. PADMINI/GLENIS/IRA DR: Joe TID: [id number] CC: INGRID BROWNLEE MD
== END ==
LOC: RT 12:37
PROVIDERS: ATTEND Family Medicine
DX: G47.33 Obstructive sleep apnea (adult) (pediatric) (principal); R53.83 Other fatigue
CPT/HCPCS: G0399